=== PATIENT | female | born 1945 | race American Indian/Alaskan Native ===

== ENCOUNTER 2020-10-16 17:33 | Inpatient (IN) | payer MEDICARE ==
--- NOTE | 2020-10-16 18:15 | XRay Report ---
XR chest routine 2V INDICATION / CLINICAL INFORMATION: low O2 sats. COMPARISON: None FINDINGS: SUPPORT DEVICES: None. HEART /PULMONARY VASCULATURE: The cardiac silhouette is enlarged. There is no significant pulmonary v asculature congestion. LUNGS / PLEURA: Trace left pleural effusion. Very mild bibasilar opacities. Linear scarring or volume loss in the left midlung. No pneumothorax. ADDITIONAL FINDINGS: No significant additional findings. IMPRESSION: Trace left pleural effusion. Very mild bibasilar pulmonary opacities may reflect atelectasis or devel oping infiltrate. Signer Name: Danny Bazzi MD Signed: 10/16/2020 6:11 PM Workstation Name: [id number]
[2020-10-16 18:44] LABS: Alanine Aminotransferase 50 units/L (7-56); Albumin 3.6 g/dL (3.9-5); Blood Urea Nitrogen 13 mg/dL (7-17); Calcium 9.1 mg/dL (8.4-10.2); Hemolysis Index 13
[2020-10-16 18:54] LABS: BUN/Creatinine Ratio 19
[2020-10-16 19:02] LABS: Hematocrit 49.1 % (30.3-42.9); Hemoglobin 15.6 gm/dl (10.1-14.3); Mean Corpuscular HGB Conc 32 % (30-34); Mean Corpuscular Volume 87 fl (79-97); Platelet Count 354 K/mm3 (140-440); Red Blood Count 5.63 M/mm3 (3.65-5.03); Red Cell Distribution Width 15.4 % (13.2-15.2)
--- NOTE | 2020-10-17 00:48 | Emergency Department Report ---
ED Shortness of Breath HPI - General Chief Complaint: Dyspnea/Respdistress Stated Complaint: OXYGEN LOW Time Seen by Provider: 10/17/20 00:40 Source: patient, family Mode of arrival: Ambulatory Limitations: No Limitations - History of Present Illness Initial Comments: 75-year-old female, history of hypertension, presents to ED with low O2 saturation from PCPs office. Patient states this was her first appointment with this new PCP. At PCPs office O2 sats were in the 70s on room air. Patient reports she has been having worsening shortness of breath over the last month. At today's appointment, she states physician was concerned that patient may have COPD or a PE, and advised patient to come to the ER. Patient denies any fever, cough, headache, vomiting, diarrhea, leg pain or swelling, loss of smell or taste. Patient reports chronic tobacco use. She denies having received a COVID-19 vaccine. Patient denies any known contact with anyone who has tested positive for COVID-19. MD Complaint: shortness of breath -: month(s) (1) Severity: moderate Quality: other (painless) Consistency: constant Improves With: nothing Worsens With: exertion Associated Symptoms: denies other symptoms Treatments Prior to Arrival: none - Related Data Home Oxygen Therapy: No Allergies Allergy/AdvReac Type Severity Reaction Status Date / Time No Known Allergies Allergy Verified 10/17/20 05:00 ED Review of Systems ROS: Stated complaint: OXYGEN LOW Other details as noted in HPI Comment: All other systems reviewed and negative Constitutional: denies: fever ENT: other (Denies loss of smell or taste) Respiratory: shortness of breath. denies: cough Cardiovascular: denies: chest pain Gastrointestinal: denies: nausea, vomiting, diarrhea Musculoskeletal: other (Denies leg pain or swelling) ED Past Medical Hx - Past Medical History Hx Hypertension: Yes Hx Asthma: Yes ED Physical Exam - General Limitations: No Limitations General appearance: alert, in no apparent distress - Head Head exam: Present: atraumatic, normocephalic - Eye Eye exam: Present: normal appearance, EOMI - ENT ENT exam: Present: mucous membranes moist - Neck Neck exam: Present: normal inspection - Respiratory Respiratory exam: Present: normal lung sounds bilaterally. Absent: respiratory distress - Cardiovascular Cardiovascular Exam: Present: regular rate, normal rhythm - GI/Abdominal GI/Abdominal exam: Present: soft. Absent: distended, tenderness - Extremities Exam Extremities exam: Present: normal inspection. Absent: pedal edema, calf tenderness - Neurological Exam Neurological exam: Present: alert, oriented X3 - Psychiatric Psychiatric exam: Present: normal affect, normal mood - Skin Skin exam: Present: warm, dry, intact, normal color ED Course Vital Signs 10/16/20 10/16/20 10/16/20 17:43 17:44 22:24 Temperature 98.3 F Pulse Rate 79 Respiratory 20 20 16 Rate Blood Pressure Blood Pressure 155/93 [Right] O2 Sat by Pulse 72 L 100 97 Oximetry 10/17/20 10/17/20 10/17/20 00:46 00:53 01:01 Temperature Pulse Rate 83 83 Respiratory 21 16 Rate Blood Pressure 115/78 Blood Pressure [Right] O2 Sat by Pulse 98 100 98 Oximetry 10/17/20 10/17/20 10/17/20 01:15 01:31 01:45 Temperature Pulse Rate 82 83 94 H Respiratory 15 12 13 Rate Blood Pressure 115/78 115/78 115/78 Blood Pressure [Right] O2 Sat by Pulse 97 95 93 Oximetry 10/17/20 10/17/20 10/17/20 02:01 02:15 02:30 Temperature Pulse Rate 82 Respiratory 30 H Rate Blood Pressure 123/80 123/80 123/80 Blood Pressure [Right] O2 Sat by Pulse 89 86 94 Oximetry 10/17/20 10/17/20 10/17/20 02:45 03:01 03:25 Temperature Pulse Rate 80 76 Respiratory 14 13 Rate Blood Pressure 123/80 110/73 110/73 Blood Pressure [Right] O2 Sat by Pulse 100 100 100 Oximetry 10/17/20 10/17/20 10/17/20 03:31 03:45 04:01 Temperature Pulse Rate 83 Respiratory 16 Rate Blood Pressure 110/73 110/73 120/74 Blood Pressure [Right] O2 Sat by Pulse 99 95 98 Oximetry 10/17/20 10/17/20 10/17/20 04:15 04:31 04:45 Temperature Pulse Rate 86 82 77 Respiratory 27 H 29 H 15 Rate Blood Pressure 110/73 110/73 110/73 Blood Pressure [Right] O2 Sat by Pulse 96 96 94 Oximetry 10/17/20 10/17/20 10/17/20 05:01 05:15 05:31 Temperature Pulse Rate 86 Respiratory 9 L Rate Blood Pressure 119/74 120/74 120/74 Blood Pressure [Right] O2 Sat by Pulse 68 L 91 92 Oximetry 10/17/20 10/17/20 10/17/20 05:45 06:01 07:15 Temperature Pulse Rate Respiratory Rate Blood Pressure 120/74 103/65 106/74 Blood Pressure [Right] O2 Sat by Pulse 88 95 93 Oximetry 10/17/20 10/17/20 10/17/20 08:00 08:01 09:01 Temperature Pulse Rate 85 Respiratory 18 Rate Blood Pressure 102/68 102/68 Blood Pressure [Right] O2 Sat by Pulse 94 91 Oximetry 10/17/20 10/17/20 10/17/20 10:01 11:01 11:29 Temperature Pulse Rate 80 85 Respiratory 12 19 Rate Blood Pressure 102/68 102/68 Blood Pressure [Right] O2 Sat by Pulse 92 Oximetry 10/17/20 10/17/20 10/17/20 12:00 14:00 16:23 Temperature Pulse Rate 90 88 85 Respiratory Rate Blood Pressure Blood Pressure 112/69 106/57 106/59 [Right] O2 Sat by Pulse 95 95 95 Oximetry 10/17/20 18:00 Temperature Pulse Rate 86 Respiratory Rate Blood Pressure Blood Pressure 111/57 [Right] O2 Sat by Pulse 95 Oximetry ED Medical Decision Making - Lab Data Result diagrams: 10/16/20 17:55 10/17/20 03:32 - Radiology Data Radiology results: report reviewed, image reviewed - Medical Decision Making 75-year-old female presents to ED with shortness of breath and hypoxia. O2 sats 72% on room air at triage. Patient denies any Covid-like symptoms. Patient is in no respiratory distress at this time. Chest x-ray shows trace left pleural effusion and very mild bibasilar opacities that could represent early pneumonia versus atelectasis. Patient is currently on 5 L nasal cannula with O2 sat of 100%. Blood cultures ordered, patient given Rocephin, azithromycin, Decadron for possible Covid. Labs are unremarkable except for elevated D-dimer of 614. CTA chest has been ordered. I spoke with Dr. Stoll who will be admitting the patient. He is aware that CTA chest is pending. Dr. Melo has agreed to also follow-up on patient's CTA chest. - Differential Diagnosis COPD, PE, COVID Critical Care Time: Yes Critical care time in (mins) excluding proc time.: 35 Critical care attestation.: If time is entered above; I have spent that time in minutes in the direct care of this critically ill patient, excluding procedure time. Critical Care Time: 35 min ED Disposition Clinical Impression: Acute respiratory failure with hypoxia, Pneumonia, Suspected 2019 novel coronavirus infection Disposition: ADMITTED INPATIENT Is pt being admited?: Yes Condition: Stable
[2020-10-17 02:11] LABS: INR 1.13 (0.87-1.13)
[2020-10-17] MEDS ORDERED: AZITHROMYCIN 250 MG TAB PO ONE (02:50)
[2020-10-17] MEDS ORDERED: cefTRIAXone/NS 1 GM/50 ML 1 GM/50 ML BAG IV ONE (02:50)
[2020-10-17] MEDS ORDERED: DEXAMETHASONE 4 MG TAB PO ONE (02:50)
--- NOTE | 2020-10-17 03:45 | Cat Scan Report ---
CTA CHEST WITH IV CONTRAST INDICATION: hypoxia, elevated d-dimer. TECHNIQUE: Axial CT images were obtained through the chest after injection of 100 cc IV contrast. 3 plane MIP re constructions were produced. All CT scans at this location are performed using CT dose reduction for ALARA by means of automated exposure control. COMPARISON: None available. FINDINGS: PULMONARY ARTERIES: No pulmonary emboli. THORACIC AORTA: No acute abnormality. HEART: Moderate cardiomegaly CORONARY ARTERIES: No significant calcification. PLEURA: No pleural effusion. No pneumothorax. LYMPH NODES: No significant adenopathy. LUNGS: Moderate pulmonary emphysema and mild increased interstitial markings calcified right upper lo be granuloma image 29 ADDITIONAL FINDINGS: None. UPPER ABDOMEN: No acute findings. SKELETAL STRUCTURES: No significant osseous abnormality. IMPRESSION: 1. No CT evidence for pulmonary embolism. 2. Cardiomegaly with increased interstitial markings suggestive for mild interstitial edema 3. Moderate emphysema Signer Name: Dilip Valerio MD Signed: 10/17/2020 3:41 AM Workstation Name: [id number]
[2020-10-17 04:26] LABS: C-Reactive Protein 0.7 mg/dL (0.00-1.30)
[2020-10-17] MEDS ORDERED: ONDANSETRON 4 MG/2 ML INJ IV PRN (04:48)
[2020-10-17] MEDS ORDERED: ALBUTEROL 2.5 MG/3 ML NEBU IH PRN (04:48)
[2020-10-17] MEDS ORDERED: ACETAMINOPHEN 325 MG TAB PO PRN (04:48)
[2020-10-17] MEDS ORDERED: HYDROmorphone 1 MG/1 ML INJ IV PRN (04:48)
[2020-10-17] MEDS ORDERED: oxyCODONE /ACETAMINOPHEN 5-325MG TAB PO PRN (04:48)
[2020-10-17] MEDS ORDERED: hydrALAZINE 20 MG/1 ML INJ IV PRN (04:51)
--- NOTE | 2020-10-17 04:56 | History and Physical Report ---
History of Present Illness Date of examination: 10/17/20 Date of admission: 10/17/2020 Chief complaint: Shortness of breath Hypoxia History of present illness: 75-year-old female, history of hypertension was brought to the emergency room from PCPs office because of shortness of breath and hypoxia. Patient was her first appointment with this new PCP. At PCPs office O2 sats were in the 70s on room air. Patient has been having worsening shortness of breath over the last month. physician was concerned that patient may have COPD or a PE, and advised patient to come to the ER. Patient denies any fever, cough, headache, vomiting, diarrhea, leg pain or swelling, loss of smell or taste. Patient reports chronic tobacco use. She denies having received a COVID-19 vaccine. Patient denies any known contact with anyone who has tested positive for COVID-19. CT scan of the chest showed no CT evidence for pulmonary embolism. Cardiomegaly with increased interstitial markings suggestive for mild interstitial edema. Moderate emphysema Past History Past Medical History: hypertension, other (Asthma) Medications and Allergies Allergies Allergy/AdvReac Type Severity Reaction Status Date / Time No Known Allergies Allergy Unverified 10/16/20 17:39 Active Meds: Active Medications Acetaminophen (Acetaminophen 325 Mg Tab) 650 mg PO Q4H PRN PRN Reason: Pain MILD(1-3)/Fever >100.5/PEREZ Albuterol (Albuterol 2.5 Mg/3 Ml Nebu) 2.5 mg IH Q4HRT PRN PRN Reason: Shortness Of Breath Albuterol/Ipratropium (Ipratropium/Albuterol Sulfate 3 Ml Ampul.Neb) 1 ampul IH Q6HRT HOWARD Ondansetron HCl (Ondansetron 4 Mg/2 Ml Inj) 4 mg IV Q8H PRN PRN Reason: Nausea And Vomiting Sodium Chloride (Sodium Chloride 0.9% 10 Ml Flush Syringe) 10 ml IV BID HOWARD Sodium Chloride (Sodium Chloride 0.9% 10 Ml Flush Syringe) 10 ml IV PRN PRN PRN Reason: LINE FLUSH Review of Systems All systems: negative Cardiovascular: shortness of breath, dyspnea on exertion Respiratory: shortness of breath, dyspnea on exertion Exam - Constitutional Vitals: Temp Pulse Resp BP Pulse Ox 98.3 F 94 H 13 115/78 93 10/16/20 17:43 10/17/20 01:45 10/17/20 01:45 10/17/20 01:45 10/17/20 01:45 General appearance: Present: no acute distress, well-nourished - EENT Eyes: Present: PERRL ENT: hearing intact, clear oral mucosa - Neck Neck: Present: supple, normal ROM - Respiratory Respiratory effort: normal Respiratory: bilateral: diminished - Cardiovascular Heart Sounds: Present: S1 & S2. Absent: rub, click - Extremities Extremities: pulses symmetrical, No edema Peripheral Pulses: within normal limits - Abdominal General gastrointestinal: Present: soft, non-tender, non-distended, normal bowel sounds Female genitourinary: Present: normal - Integumentary Integumentary: Present: clear, warm, dry - Musculoskeletal Musculoskeletal: gait normal, strength equal bilaterally - Psychiatric Psychiatric: appropriate mood/affect, intact judgment & insight - Neurologic Neurologic: CNII-XII intact, moves all extremities HEART Score - HEART Score Troponin: Troponin T < 0.010 ng/mL (0.00-0.029) 10/16/20 21:10 Results - Labs CBC & Chem 7: 10/16/20 17:55 10/17/20 03:32 Labs: Laboratory Last Values WBC 4.2 K/mm3 (4.5-11.0) L 10/16/20 17:55 RBC 5.63 M/mm3 (3.65-5.03) H 10/16/20 17:55 Hgb 15.6 gm/dl (10.1-14.3) H 10/16/20 17:55 Hct 49.1 % (30.3-42.9) H 10/16/20 17:55 MCV 87 fl (79-97) 10/16/20 17:55 MCH 28 pg (28-32) 10/16/20 17:55 MCHC 32 % (30-34) 10/16/20 17:55 RDW 15.4 % (13.2-15.2) H 10/16/20 17:55 Plt Count 354 K/mm3 (140-440) 10/16/20 17:55 Lymph % (Auto) Patient Financial Services Specialist 10/16/20 17:55 [place] % (Auto) Patient Financial Services Specialist 10/16/20 17:55 Eos % (Auto) Patient Financial Services Specialist 10/16/20 17:55 [place] % (Auto) Patient Financial Services Specialist 10/16/20 17:55 Lymph # (Auto) Patient Financial Services Specialist 10/16/20 17:55 [place] # (Auto) Patient Financial Services Specialist 10/16/20 17:55 Eos # (Auto) Patient Financial Services Specialist 10/16/20 17:55 [place] # (Auto) Patient Financial Services Specialist 10/16/20 17:55 Seg Neutrophils % Patient Financial Services Specialist 10/16/20 17:55 Seg Neutrophils # Patient Financial Services Specialist 10/16/20 17:55 PT 15.1 Sec. (12.2-14.9) H 10/17/20 00:50 INR 1.13 (0.87-1.13) 10/17/20 00:50 APTT 32.0 Sec. (24.2-36.6) 10/17/20 00:50 D-Dimer 539.50 ng/mlDDU (0-234) H 10/17/20 03:32 Sodium 138 mmol/L (137-145) 10/16/20 17:55 Potassium 4.8 mmol/L (3.6-5.0) 10/16/20 17:55 Chloride 99.7 mmol/L (98-107) 10/16/20 17:55 Carbon Dioxide 30 mmol/L (22-30) 10/16/20 17:55 Anion Gap 13 mmol/L 10/16/20 17:55 BUN 13 mg/dL (7-17) 10/16/20 17:55 Creatinine 0.7 mg/dL (0.6-1.2) 10/16/20 17:55 Estimated GFR > 60 ml/min 10/16/20 17:55 BUN/Creatinine Ratio 19 % 10/16/20 17:55 Glucose 72 mg/dL (65-100) 10/17/20 03:32 Calcium 9.1 mg/dL (8.4-10.2) 10/16/20 17:55 Ferritin 15.6 ng/mL (10.0-200.0) 10/17/20 03:32 Total Bilirubin 0.30 mg/dL (0.1-1.2) 10/16/20 17:55 AST 41 units/L (5-40) H 10/16/20 17:55 ALT 50 units/L (7-56) 10/16/20 17:55 Alkaline Phosphatase 92 units/L (35-129) 10/16/20 17:55 Lactate Dehydrogenase 153 units/L (91-180) 10/17/20 03:32 Troponin T < 0.010 ng/mL (0.00-0.029) 10/16/20 21:10 C-Reactive Protein 0.70 mg/dL (0.00-1.30) 10/17/20 03:32 Total Protein 5.7 g/dL (6.3-8.2) L 10/16/20 17:55 Albumin 3.6 g/dL (3.9-5) L 10/16/20 17:55 Albumin/Globulin Ratio 1.7 % 10/16/20 17:55 - Imaging and Cardiology Chest x-ray: report reviewed CT scan - chest: report reviewed Assessment and Plan VTE prophylaxis?: Chemical Plan of care discussed with patient/family: Yes - Patient Problems (1) Acute respiratory failure with hypoxia Current Visit: Yes Status: Acute Plan to address problem: Admit the patient to the medical floor. Oxygen via nasal cannula 3 L/min. DuoNeb by nebulizer every 4 hours. Albuterol via nebulizer every 4 hours as needed. Rocephin 2 g IV daily and Zithromax 500 mg IV daily. Dexamethasone 6 mg IV daily. We do the blood culture and sputum culture. Will consult pulmonary for evaluation (2) Pneumonia Current Visit: Yes Status: Acute Plan to address problem: Oxygen via nasal cannula 3 L/min. DuoNeb by nebulizer every 4 hours. Albuterol via nebulizer every 4 hours as needed. Rocephin 2 g IV daily and Zithromax 500 mg IV daily. we do the blood culture and sputum culture. Will consult pulmonary for evaluation (3) Suspected 2019 novel coronavirus infection Current Visit: Yes Status: Acute Plan to address problem: Oxygen via nasal cannula 3 L/min. DuoNeb by nebulizer every 4 hours. Albuterol via nebulizer every 4 hours as needed. Rocephin 2 g IV daily and Zithromax 500 mg IV daily. Dexamethasone 6 mg IV daily. We do the blood culture and sputum culture. Will consult pulmonary for evaluation. Follow Covid PCR and Covid inflammatory marker (4) Hypertension Current Visit: Yes Status: Acute Plan to address problem: Hydralazine 10 mg IV every 6 hours as needed. We will monitor the blood pressure closely (5) Asthma Current Visit: Yes Status: Acute Plan to address problem: Oxygen via nasal cannula 3 L/min. DuoNeb by nebulizer every 4 hours. Albuterol via nebulizer every 4 hours as needed. Rocephin 2 g IV daily and Zithromax 500 mg IV daily. Dexamethasone 6 mg IV daily. (6) DVT prophylaxis Current Visit: Yes Status: Acute Plan to address problem: Heparin 5000 units subcu every 8 hours for DVT prophylaxis. Pepcid 20 mg p.o. twice daily for GI prophylaxis. Patient is a full code
[2020-10-17] MEDS: AZITHROMYCIN/NS 500 MG/250 ML 500 MG/250 ML BAG IV SCH (06:10)
[2020-10-17] MEDS: HEPARIN 5,000 UNIT/1 ML VIAL SUB-Q SCH ×3 (06:10→22:46)
[2020-10-17] MEDS: cefTRIAXone/NS 2 GM/100 ML 2 GM/100 ML BAG IV SCH (06:10)
[2020-10-17] MEDS ORDERED: dexAMETHasone 4 MG/ML VIAL IV SCH (10:00)
[2020-10-17] MEDS: FAMOTIDINE 20 MG TAB PO SCH ×2 (10:44→22:41)
--- NOTE | 2020-10-17 12:50 | Progress Note ---
Assessment and Plan Assessment and plan: (1) Acute respiratory failure with hypoxia Current Visit: Yes Status: Acute Plan to address problem: Admit the patient to the medical floor. Currently on supplemental oxygen 2 L/min DuoNeb by nebulizer every 4 hours. Rocephin 2 g IV daily and Zithromax 500 mg IV daily. Discontinue dexamethasone 6 mg IV daily. blood culture and sputum culture ordered Pulmonary consulted on admission (2) Pneumonia Current Visit: Yes Status: Acute Plan to address problem: CTA chest: Negative for PE, interstitial infiltrates noted bilaterally. No facial read per radiology Management as above (3) Suspected 2019 novel coronavirus infection Current Visit: Yes Status: Acute Plan to address problem: Covid PCR negative Educated on obtaining Covid 19 vaccine (4) Hypertension Current Visit: Yes Status: Acute Plan to address problem: Hydralazine 10 mg IV every 6 hours as needed. Takes amlodipine as home medication however states that she was told to discontinue by primary care doctor (5) Asthma Current Visit: Yes Status: Acute Plan to address problem: Nebulizers as above, does not appear to be in acute exacerbation (6) DVT prophylaxis Current Visit: Yes Status: Acute Plan to address problem: Heparin 5000 units subcu every 8 hours for DVT prophylaxis. Pepcid 20 mg p.o. twice daily for GI prophylaxis. Patient is a full code Disposition: Admitted for acute hypoxic respiratory failure secondary to pneumonia. Currently on IV antibiotics. Pulmonary consulted on admission. Patient improved on subsequent encounter. Will titrate oxygen off as sats tolerate. Physical therapy consulted. Anticipate discharge tomorrow History Interval history: Resting comfortably sleeping on encounter. Per RN off oxygen patient saturates to 90% however on 2 L she comes up to 95%. Patient states that she feels very weak. She denied having taken the COVID-19 vaccine. She states that she was sent by her primary care doctor due to concerns about her oxygenation. Hospitalist Physical - Physical exam Narrative exam: Physical Exam: Constitutional: Drowsy, cooperative. No acute distress. Frail, elderly woman Head, Ears, Nose: Normocephalic, atraumatic. External ears, nose normal Eyes: Conjunctivae/corneas clear. No icterus. No ptosis. Neck: Supple, no meningeal signs Oral: dentition fair, no thrush Cardiovascular: S1, S2 normal. Respiratory: Good air entry, clear to auscultation bilaterally GI: Soft, non-tender; bowel sounds normal. No peritoneal signs. Musculoskeletal: No pedal edema, no cyanosis. Skin: No rash or abscess Hem/Lymphatic: No palpable cervical or supraclavicular nodes. No lymphangitis Psych: Mood ok. Affect normal Neurological: Awake, alert, oriented. No gross abnormality - Constitutional Vitals: Temp Pulse Resp BP Pulse Ox 98.3 F 85 18 102/68 92 10/16/20 17:43 10/17/20 09:01 10/17/20 09:01 10/17/20 09:01 10/17/20 11:29 General appearance: Present: no acute distress, well-nourished HEART Score - HEART Score Troponin: Troponin T < 0.010 ng/mL (0.00-0.029) 10/16/20 21:10 Results - Labs CBC & Chem 7: 10/16/20 17:55 10/17/20 03:32 Labs: Laboratory Last Values WBC 4.2 K/mm3 (4.5-11.0) L 10/16/20 17:55 RBC 5.63 M/mm3 (3.65-5.03) H 10/16/20 17:55 Hgb 15.6 gm/dl (10.1-14.3) H 10/16/20 17:55 Hct 49.1 % (30.3-42.9) H 10/16/20 17:55 MCV 87 fl (79-97) 10/16/20 17:55 MCH 28 pg (28-32) 10/16/20 17:55 MCHC 32 % (30-34) 10/16/20 17:55 RDW 15.4 % (13.2-15.2) H 10/16/20 17:55 Plt Count 354 K/mm3 (140-440) 10/16/20 17:55 Lymph % (Auto) Outdoor Guide 10/16/20 17:55 [place] % (Auto) Outdoor Guide 10/16/20 17:55 Eos % (Auto) Outdoor Guide 10/16/20 17:55 Baso % (Auto) Outdoor Guide 10/16/20 17:55 Lymph # (Auto) Outdoor Guide 10/16/20 17:55 [place] # (Auto) Outdoor Guide 10/16/20 17:55 Eos # (Auto) Outdoor Guide 10/16/20 17:55 Baso # (Auto) Outdoor Guide 10/16/20 17:55 Seg Neutrophils % Outdoor Guide 10/16/20 17:55 Seg Neutrophils # Outdoor Guide 10/16/20 17:55 PT 15.1 Sec. (12.2-14.9) H 10/17/20 00:50 INR 1.13 (0.87-1.13) 10/17/20 00:50 APTT 32.0 Sec. (24.2-36.6) 10/17/20 00:50 D-Dimer 539.50 ng/mlDDU (0-234) H 10/17/20 03:32 Sodium 138 mmol/L (137-145) 10/16/20 17:55 Potassium 4.8 mmol/L (3.6-5.0) 10/16/20 17:55 Chloride 99.7 mmol/L (98-107) 10/16/20 17:55 Carbon Dioxide 30 mmol/L (22-30) 10/16/20 17:55 Anion Gap 13 mmol/L 10/16/20 17:55 BUN 13 mg/dL (7-17) 10/16/20 17:55 Creatinine 0.7 mg/dL (0.6-1.2) 10/16/20 17:55 Estimated GFR > 60 ml/min 10/16/20 17:55 BUN/Creatinine Ratio 19 % 10/16/20 17:55 Glucose 72 mg/dL (65-100) 10/17/20 03:32 Calcium 9.1 mg/dL (8.4-10.2) 10/16/20 17:55 Ferritin 15.6 ng/mL (10.0-200.0) 10/17/20 03:32 Total Bilirubin 0.30 mg/dL (0.1-1.2) 10/16/20 17:55 AST 41 units/L (5-40) H 10/16/20 17:55 ALT 50 units/L (7-56) 10/16/20 17:55 Alkaline Phosphatase 92 units/L (35-129) 10/16/20 17:55 Lactate Dehydrogenase 153 units/L (91-180) 10/17/20 03:32 Troponin T < 0.010 ng/mL (0.00-0.029) 10/16/20 21:10 C-Reactive Protein 0.70 mg/dL (0.00-1.30) 10/17/20 03:32 Total Protein 5.7 g/dL (6.3-8.2) L 10/16/20 17:55 Albumin 3.6 g/dL (3.9-5) L 10/16/20 17:55 Albumin/Globulin Ratio 1.7 % 10/16/20 17:55 Procalcitonin 0.44 ng/mL (<0.15) 10/17/20 03:32 Microbiology: Microbiology 10/17/20 03:32 Peripheral/Venous Blood Culture - Preliminary Culture in Progress 10/17/20 03:32 Peripheral/Venous Blood Culture - Preliminary Culture in Progress Active Medications - Current Medications Current Medications: Generic Name Dose Route Start Last Admin Trade Name Freq PRN Reason Stop Dose Admin Acetaminophen 650 mg 10/17/20 04:48 Acetaminophen 325 Mg Tab PO Q4H PRN Pain MILD(1-3)/Fever >100.5/PEREZ Albuterol 2.5 mg 10/17/20 04:48 Albuterol 2.5 Mg/3 Ml Nebu IH Q4HRT PRN Shortness Of Breath Albuterol/Ipratropium 1 ampul 10/17/20 08:00 Ipratropium/Albuterol Sulfate 3 Ml Ampul.Neb IH Q6HRT HOWARD Dexamethasone 6 mg 10/17/20 10:00 10/17/20 10:44 Dexamethasone 4 Mg/Ml Vial IV 6 mg DAILY HOWARD Administration Famotidine 20 mg 10/17/20 10:00 10/17/20 10:44 Famotidine 20 Mg Tab PO 20 mg BID HOWARD Administration Heparin Sodium (Porcine) 5,000 unit 10/17/20 06:00 10/17/20 06:10 Heparin 5,000 Unit/1 Ml Vial SUB-Q 5,000 unit Q8HR HOWARD Administration Hydralazine HCl 10 mg 10/17/20 04:51 Hydralazine 20 Mg/1 Ml Inj IV Q6H PRN Blood Pressure Hydromorphone HCl 0.5 mg 10/17/20 04:48 Hydromorphone 1 Mg/1 Ml Inj IV Q3H PRN Pain , Severe (7-10) Ceftriaxone Sodium 2 gm in 100 mls @ 200 mls/hr 10/17/20 05:00 10/17/20 06:10 Rocephin/Ns 2 Gm/100 Ml IV 200 mls/hr Q24H HOWARD Administration Protocol Azithromycin 500 mg in 250 mls @ 250 mls/hr 10/17/20 05:00 10/17/20 06:10 Zithromax/Ns IV 250 mls/hr Q24H HOWARD Administration Protocol Ondansetron HCl 4 mg 10/17/20 04:48 Ondansetron 4 Mg/2 Ml Inj IV Q8H PRN Nausea And Vomiting Oxycodone/Acetaminophen 1 tab 10/17/20 04:48 Oxycodone /Acetaminophen 5-325mg Tab PO Q6H PRN Pain, Moderate (4-6) Sodium Chloride 10 ml 10/17/20 10:00 10/17/20 10:45 Sodium Chloride 0.9% 10 Ml Flush Syringe IV 10 ml BID HOWARD Administration Sodium Chloride 10 ml 10/17/20 04:48 Sodium Chloride 0.9% 10 Ml Flush Syringe IV PRN PRN LINE FLUSH
[2020-10-17] MEDS: NICOTINE 14 MG/24 HR PATCH TD SCH (23:40)
[2020-10-18] MEDS: ESCITALOPRAM 10 MG TAB PO SCH ×2 (01:43→10:15)
[2020-10-18] MEDS: IPRATROPIUM/ALBUTEROL SULFATE 3 ML AMPUL.NEB IH SCH ×6 (01:48→23:26)
[2020-10-18 05:55] LABS: Hematocrit 45.3 % (30.3-42.9); Hemoglobin 14.4 gm/dl (10.1-14.3); Mean Corpuscular HGB Conc 32 % (30-34); Mean Corpuscular Volume 88 fl (79-97); Platelet Count 309 K/mm3 (140-440); Red Blood Count 5.15 M/mm3 (3.65-5.03); Red Cell Distribution Width 15.4 % (13.2-15.2)
[2020-10-18 06:13] LABS: Blood Urea Nitrogen 12 mg/dL (7-17); Calcium 9.1 mg/dL (8.4-10.2); Hemolysis Index 2
[2020-10-18 06:15] LABS: BUN/Creatinine Ratio 20
[2020-10-18] MEDS: HEPARIN 5,000 UNIT/1 ML VIAL SUB-Q SCH ×3 (06:41→22:38)
[2020-10-18] MEDS: cefTRIAXone/NS 2 GM/100 ML 2 GM/100 ML BAG IV SCH (06:41)
[2020-10-18 06:44] LABS: Total Cells Counted 100
[2020-10-18 06:45] LABS: Platelet Estimate Consistent w Auto; RBC Morphology Normal
[2020-10-18] MEDS: AZITHROMYCIN/NS 500 MG/250 ML 500 MG/250 ML BAG IV SCH (07:13)
[2020-10-18] MEDS: FAMOTIDINE 20 MG TAB PO SCH ×2 (10:15→23:10)
[2020-10-18] MEDS: NICOTINE 14 MG/24 HR PATCH TD SCH (10:15)
[2020-10-18] MEDS ORDERED: SODIUM CHLORIDE 0.9% 1000 ML 1,000 ML IV SCH (10:45)
--- NOTE | 2020-10-18 10:45 | Progress Note ---
Assessment and Plan Assessment and plan: (1) Acute respiratory failure with hypoxia Admit the patient to the medical floor, etiology likely interstitial edema. doubt pneumonia Currently on supplemental oxygen 3 L/min DuoNeb by nebulizer every 4 hours. Budesonide every 12 hours COVID PCR negative Procal low, d/c Rocephin 2 g IV daily and Zithromax 500 mg IV daily. Discontinue dexamethasone 6 mg IV daily. blood culture and sputum culture ordered ECHO ordered Lasix 20 mg IV x1 Pulmonary consulted Pateint desaturated to 82% walking from bed to restroom off of oxygen. CM consult for home oxygen. (2) Interstitial Edema Weak on encounter, afebrile, hypoxic Admission chest x-ray CTA chest: Negative for PE, interstitial infiltrates noted bilaterally. Official read per radiology BNP ordered ECHO ordered Management as above (3) Hypertension Hydralazine 10 mg IV every 6 hours as needed. Takes amlodipine as home medication however states that she was told to d iscontinue by primary care doctor (4) Emphysema Emphysematous findings noted on CTA chest Nebulizers as above, does not appear to be in acute exacerbation (5) Suspected 2019 novel coronavirus infection Covid PCR negative Educated on obtaining Covid 19 vaccine (6) DVT prophylaxis Heparin 5000 units subcu every 8 hours for DVT prophylaxis. Pepcid 20 mg p.o. twice daily for GI prophylaxis. Patient is a full code Hospital course to date: 10/17: Admitted for acute hypoxic respiratory failure secondary to pneumonia. Currently on IV antibiotics. Pulmonary consulted on admission. Patient imp roved on subsequent encounter. Will titrate oxygen off as sats tolerate. Physical therapy consulted. Anticipate discharge tomorrow 10/18/2020: Clinically worsened today. Patient hypoxic upon ambulation. Patient may be fluid overloaded, will try one-time dose of Lasix. Echo ordered. Appears more weak. Added budesonide, incentive spirometry. Continuing antibiotics. Unfortunately patient cannot be discharged home today will await pulmonary recommendations.CM order placed for oxygen. History Interval history: Per RN, desaturated to low 80s when ambulating to the restroom. Appears to be significantly more weak this a.m. Hospitalist Physical - Physical exam Narrative exam: Physical Exam: Constitutional: Drowsy, cooperative. No acute distress. Frail, elderly woman Head, Ears, Nose: Normocephalic, atraumatic. External ears, nose normal Eyes: Conjunctivae/corneas clear. No icterus. No ptosis. Neck: Supple, no meningeal signs Oral: dentition fair, no thrush Cardiovascular: S1, S2 normal. Respiratory: Good air entry, bilateral wheezes. GI: Soft, non-tender; bowel sounds normal. No peritoneal signs. Musculoskeletal: No pedal edema, no cyanosis. Skin: No rash or abscess Hem/Lymphatic: No palpable cervical or supraclavicular nodes. No lymphangitis Psych: Mood ok. Affect normal Neurological: Awake, alert, oriented. No gross abnormality - Constitutional Vitals: Temp Pulse Resp BP Pulse Ox 98.3 F 84 15 111/57 97 10/16/20 17:43 10/18/20 01:54 10/18/20 01:54 10/17/20 18:00 10/17/20 22:00 General appearance: Present: no acute distress, well-nourished HEART Score - HEART Score Troponin: Troponin T < 0.010 ng/mL (0.00-0.029) 10/16/20 21:10 Results - Labs CBC & Chem 7: 10/18/20 05:11 10/18/20 05:11 Labs: Laboratory Last Values WBC 4.7 K/mm3 (4.5-11.0) 10/18/20 05:11 RBC 5.15 M/mm3 (3.65-5.03) H 10/18/20 05:11 Hgb 14.4 gm/dl (10.1-14.3) H 10/18/20 05:11 Hct 45.3 % (30.3-42.9) H 10/18/20 05:11 MCV 88 fl (79-97) 10/18/20 05:11 MCH 28 pg (28-32) 10/18/20 05:11 MCHC 32 % (30-34) 10/18/20 05:11 RDW 15.4 % (13.2-15.2) H 10/18/20 05:11 Plt Count 309 K/mm3 (140-440) 10/18/20 05:11 Lymph % (Auto) Ditcher Operator 10/16/20 17:55 [place] % (Auto) Ditcher Operator 10/18/20 05:11 Eos % (Auto) Ditcher Operator 10/16/20 17:55 Baso % (Auto) Ditcher Operator 10/16/20 17:55 Lymph # (Auto) Ditcher Operator 10/16/20 17:55 [place] # (Auto) Ditcher Operator 10/16/20 17:55 Eos # (Auto) Ditcher Operator 10/16/20 17:55 Baso # (Auto) Ditcher Operator 10/16/20 17:55 Add Manual Diff Complete 10/18/20 05:11 Total Counted 100 10/18/20 05:11 Seg Neutrophils % Ditcher Operator 10/16/20 17:55 Seg Neuts % (Manual) 60.0 % (40.0-70.0) 10/18/20 05:11 Lymphocytes % (Manual) 27.0 % (13.4-35.0) 10/18/20 05:11 Monocytes % (Manual) 13.0 % (0.0-7.3) H 10/18/20 05:11 Nucleated RBC % Not Reportable 10/18/20 05:11 Seg Neutrophils # Ditcher Operator 10/16/20 17:55 Seg Neutrophils # Man 2.8 K/mm3 (1.8-7.7) 10/18/20 05:11 Band Neutrophils # 0.0 K/mm3 10/18/20 05:11 Lymphocytes # (Manual) 1.3 K/mm3 (1.2-5.4) 10/18/20 05:11 Abs React Lymphs (Man) 0.0 K/mm3 10/18/20 05:11 Monocytes # (Manual) 0.6 K/mm3 (0.0-0.8) 10/18/20 05:11 Eosinophils # (Manual) 0.0 K/mm3 (0.0-0.4) 10/18/20 05:11 Basophils # (Manual) 0.0 K/mm3 (0.0-0.1) 10/18/20 05:11 Metamyelocytes # 0.0 K/mm3 10/18/20 05:11 Myelocytes # 0.0 K/mm3 10/18/20 05:11 Promyelocytes # 0.0 K/mm3 10/18/20 05:11 Blast Cells # 0.0 K/mm3 10/18/20 05:11 WBC Morphology Not Reportable 10/18/20 05:11 Hypersegmented Neuts Not Reportable 10/18/20 05:11 Hyposegmented Neuts Not Reportable 10/18/20 05:11 Hypogranular Neuts Not Reportable 10/18/20 05:11 Smudge Cells Not Reportable 10/18/20 05:11 Toxic Granulation Not Reportable 10/18/20 05:11 Toxic Vacuolation Not Reportable 10/18/20 05:11 Dohle Bodies Not Reportable 10/18/20 05:11 Pelger-Huet Anomaly Not Reportable 10/18/20 05:11 Millie Rods Not Reportable 10/18/20 05:11 Platelet Estimate Consistent w auto 10/18/20 05:11 Clumped Platelets Not Reportable 10/18/20 05:11 Plt Clumps, EDTA Not Reportable 10/18/20 05:11 Large Platelets Not Reportable 10/18/20 05:11 Giant Platelets Not Reportable 10/18/20 05:11 Platelet Satelliting Not Reportable 10/18/20 05:11 Plt Morphology Comment Not Reportable 10/18/20 05:11 RBC Morphology Normal 10/18/20 05:11 Dimorphic RBCs Not Reportable 10/18/20 05:11 Polychromasia Not Reportable 10/18/20 05:11 Hypochromasia Not Reportable 10/18/20 05:11 Poikilocytosis Not Reportable 10/18/20 05:11 Anisocytosis Not Reportable 10/18/20 05:11 Microcytosis Not Reportable 10/18/20 05:11 Macrocytosis Not Reportable 10/18/20 05:11 Spherocytes Not Reportable 10/18/20 05:11 Pappenheimer Bodies Not Reportable 10/18/20 05:11 Sickle Cells Not Reportable 10/18/20 05:11 Target Cells Not Reportable 10/18/20 05:11 Tear Drop Cells Not Reportable 10/18/20 05:11 Ovalocytes Not Reportable 10/18/20 05:11 Helmet Cells Not Reportable 10/18/20 05:11 [place] Bodies Not Reportable 10/18/20 05:11 Gary Rings Not Reportable 10/18/20 05:11 Mayra Cells Not Reportable 10/18/20 05:11 Bite Cells Not Reportable 10/18/20 05:11 Crenated Cell Not Reportable 10/18/20 05:11 Elliptocytes Not Reportable 10/18/20 05:11 Acanthocytes (Spur) Not Reportable 10/18/20 05:11 Rouleaux Not Reportable 10/18/20 05:11 Hemoglobin C Crystals Not Reportable 10/18/20 05:11 Schistocytes Not Reportable 10/18/20 05:11 Malaria parasites Not Reportable 10/18/20 05:11 Lenny Bodies Not Reportable 10/18/20 05:11 Hem Pathologist Commnt No 10/18/20 05:11 PT 15.1 Sec. (12.2-14.9) H 10/17/20 00:50 INR 1.13 (0.87-1.13) 10/17/20 00:50 APTT 32.0 Sec. (24.2-36.6) 10/17/20 00:50 D-Dimer 539.50 ng/mlDDU (0-234) H 10/17/20 03:32 Sodium 141 mmol/L (137-145) 10/18/20 05:11 Potassium 5.0 mmol/L (3.6-5.0) 10/18/20 05:11 Chloride 100.9 mmol/L (98-107) 10/18/20 05:11 Carbon Dioxide 34 mmol/L (22-30) H 10/18/20 05:11 Anion Gap 11 mmol/L 10/18/20 05:11 BUN 12 mg/dL (7-17) 10/18/20 05:11 Creatinine 0.6 mg/dL (0.6-1.2) 10/18/20 05:11 Estimated GFR > 60 ml/min 10/18/20 05:11 BUN/Creatinine Ratio 20 % 10/18/20 05:11 Glucose 111 mg/dL (65-100) H 10/18/20 05:11 Calcium 9.1 mg/dL (8.4-10.2) 10/18/20 05:11 Ferritin 15.6 ng/mL (10.0-200.0) 10/17/20 03:32 Total Bilirubin 0.30 mg/dL (0.1-1.2) 10/16/20 17:55 AST 41 units/L (5-40) H 10/16/20 17:55 ALT 50 units/L (7-56) 10/16/20 17:55 Alkaline Phosphatase 92 units/L (35-129) 10/16/20 17:55 Lactate Dehydrogenase 153 units/L (91-180) 10/17/20 03:32 Troponin T < 0.010 ng/mL (0.00-0.029) 10/16/20 21:10 C-Reactive Protein 0.70 mg/dL (0.00-1.30) 10/17/20 03:32 Total Protein 5.7 g/dL (6.3-8.2) L 10/16/20 17:55 Albumin 3.6 g/dL (3.9-5) L 10/16/20 17:55 Albumin/Globulin Ratio 1.7 % 10/16/20 17:55 Procalcitonin 0.44 ng/mL (<0.15) 10/17/20 03:32 Coronavirus (PCR) Negative (Negative) 10/17/20 09:00 Microbiology: Microbiology 10/17/20 03:32 Peripheral/Venous Blood Culture - Preliminary NO GROWTH AFTER 24 HOURS 10/17/20 03:32 Peripheral/Venous Blood Culture - Preliminary NO GROWTH AFTER 24 HOURS Active Medications - Current Medications Current Medications: Generic Name Dose Route Start Last Admin Trade Name Freq PRN Reason Stop Dose Admin Acetaminophen 650 mg 10/17/20 04:48 Acetaminophen 325 Mg Tab PO Q4H PRN Pain MILD(1-3)/Fever >100.5/PEREZ Albuterol 2.5 mg 10/17/20 04:48 Albuterol 2.5 Mg/3 Ml Nebu IH Q4HRT PRN Shortness Of Breath Albuterol/Ipratropium 1 ampul 10/17/20 08:00 10/18/20 07:10 Ipratropium/Albuterol Sulfate 3 Ml Ampul.Neb IH Not Given Q6HRT HOWARD Budesonide 0.5 mg 10/18/20 10:45 Budesonide 0.5 Mg/2 Ml Nebu IH Q12HRT HOWARD Escitalopram Oxalate 5 mg 10/18/20 01:05 10/18/20 10:15 Escitalopram 10 Mg Tab PO 5 mg QDAY HOWARD Administration Famotidine 20 mg 10/17/20 10:00 10/18/20 10:15 Famotidine 20 Mg Tab PO 20 mg BID HOWARD Administration Heparin Sodium (Porcine) 5,000 unit 10/17/20 06:00 10/18/20 06:41 Heparin 5,000 Unit/1 Ml Vial SUB-Q 5,000 unit Q8HR HOWARD Administration Hydralazine HCl 10 mg 10/17/20 04:51 Hydralazine 20 Mg/1 Ml Inj IV Q6H PRN Blood Pressure Ceftriaxone Sodium 2 gm in 100 mls @ 200 mls/hr 10/17/20 05:00 10/18/20 06:41 Rocephin/Ns 2 Gm/100 Ml IV 200 mls/hr Q24H HOWARD Administration Protocol Azithromycin 500 mg in 250 mls @ 250 mls/hr 10/17/20 05:00 10/18/20 07:13 Zithromax/Ns IV 250 mls/hr Q24H HOWARD Administration Protocol Sodium Chloride 1,000 mls @ 75 mls/hr 10/18/20 10:45 Nacl 0.9% 1000 Ml IV 10/20/20 00:04 DIRECT HOWARD Nicotine 14 mg 10/17/20 21:00 10/18/20 10:15 Nicotine 14 Mg/24 Hr Patch TD 14 mg QDAY HOWARD Administration Ondansetron HCl 4 mg 10/17/20 04:48 Ondansetron 4 Mg/2 Ml Inj IV Q8H PRN Nausea And Vomiting Sodium Chloride 10 ml 10/17/20 10:00 10/18/20 10:15 Sodium Chloride 0.9% 10 Ml Flush Syringe IV 10 ml BID HOWARD Administration Sodium Chloride 10 ml 10/17/20 04:48 Sodium Chloride 0.9% 10 Ml Flush Syringe IV PRN PRN LINE FLUSH
--- NOTE | 2020-10-18 11:05 | XRay Report ---
XR chest 1V ap INDICATION / CLINICAL INFORMATION: pneumonia. COMPARISON: 10/16/2020. FINDINGS: SUPPORT DEVICES: None. HEART /PULMONARY VASCULATURE: Stable. LUNGS / PLEURA: Trace bibasilar pleural effusions are present. There is mild interstitial edema. No p neumothorax. ADDITIONAL FINDINGS: No significant additional findings. IMPRESSION: Unchanged mild CHF with interstitial edema. No new or increasing consolidation. Signer Name: Danny Bazzi MD Signed: 10/18/2020 11:01 AM Workstation Name: [id number]
[2020-10-18] MEDS: BUDESONIDE 0.5 MG/2 ML NEBU IH SCH ×2 (11:36→23:26)
--- NOTE | 2020-10-18 14:30 | Consultation ---
History of Present Illness Consult date: 10/18/20 Requesting physician: EPI VALDES Reason for consult: COPD, hypoxemia History of present illness: 75 y/o female admitted with acute respiratory failure, COVID negative. CTA negative for PE but shows some pulmonary edema and emphysematous changes. Patient is a smoker and is not on oxygen therapy at home. Past History Past Medical History: hypertension, other (Asthma) Medications and Allergies Allergies Allergy/AdvReac Type Severity Reaction Status Date / Time No Known Allergies Allergy Verified 10/17/20 05:00 Home Medications Medication Instructions Recorded Confirmed Last Taken Type Timolol Maleate/Pf [Timolol 1 each OP BID 10/19/20 10/19/20 Unknown History Maleate 0.5% Eye Drop] amLODIPine [Norvasc] 5 mg PO DAILY 10/19/20 10/19/20 Unknown History Active Meds: Active Medications Acetaminophen (Acetaminophen 325 Mg Tab) 650 mg PO Q4H PRN PRN Reason: Pain MILD(1-3)/Fever >100.5/PEREZ Albuterol (Albuterol 2.5 Mg/3 Ml Nebu) 2.5 mg IH Q4HRT PRN PRN Reason: Shortness Of Breath Albuterol/Ipratropium (Ipratropium/Albuterol Sulfate 3 Ml Ampul.Neb) 1 ampul IH Q6HRT [facility] Last Admin: 10/18/20 11:37 Dose: 1 ampul Documented by: Budesonide (Budesonide 0.5 Mg/2 Ml Nebu) 0.5 mg IH Q12HRT [facility] Last Admin: 10/18/20 11:36 Dose: 0.5 mg Documented by: Escitalopram Oxalate (Escitalopram 10 Mg Tab) 5 mg PO QDAY [facility] Last Admin: 10/18/20 10:15 Dose: 5 mg Documented by: Famotidine (Famotidine 20 Mg Tab) 20 mg PO BID [facility] Last Admin: 10/18/20 10:15 Dose: 20 mg Documented by: Heparin Sodium (Porcine) (Heparin 5,000 Unit/1 Ml Vial) 5,000 unit SUB-Q Q8HR [facility] Last Admin: 10/18/20 06:41 Dose: 5,000 unit Documented by: Hydralazine HCl (Hydralazine 20 Mg/1 Ml Inj) 10 mg IV Q6H PRN PRN Reason: Blood Pressure Ceftriaxone Sodium (Rocephin/Ns 2 Gm/100 Ml) 2 gm in 100 mls @ 200 mls/hr IV Q24H [facility]; Protocol Last Admin: 10/18/20 06:41 Dose: 200 mls/hr Documented by: Azithromycin (Zithromax/Ns) 500 mg in 250 mls @ 250 mls/hr IV Q24H [facility]; Protocol Last Admin: 10/18/20 07:13 Dose: 250 mls/hr Documented by: Nicotine (Nicotine 14 Mg/24 Hr Patch) 14 mg TD QDAY [facility] Last Admin: 10/18/20 10:15 Dose: 14 mg Documented by: Ondansetron HCl (Ondansetron 4 Mg/2 Ml Inj) 4 mg IV Q8H PRN PRN Reason: Nausea And Vomiting Prednisone (Prednisone 20 Mg Tab) 60 mg PO QDAY [facility] Sodium Chloride (Sodium Chloride 0.9% 10 Ml Flush Syringe) 10 ml IV BID [facility] Last Admin: 10/18/20 10:15 Dose: 10 ml Documented by: Sodium Chloride (Sodium Chloride 0.9% 10 Ml Flush Syringe) 10 ml IV PRN PRN PRN Reason: LINE FLUSH Review of Systems All systems: negative Physical Examination Vital signs: Vital Signs Temp Pulse Resp BP Pulse Ox 98.3 F 79 20 155/93 72 L 10/16/20 17:43 10/16/20 17:43 10/16/20 17:43 10/16/20 17:43 10/16/20 17:43 General appearance: no acute distress, alert, other (cachectic) Eyes: non-icteric ENT: oropharynx moist Neck: supple Effort: normal Ascultation: Bilateral: diminished breath sounds, wheezes Percussion: Bilateral: not dull Tactile fremitus: Bilateral: normal Cardiovascular: regular rate and rhythm Results - Laboratory Findings CBC and BMP: 10/18/20 05:11 10/18/20 05:11 PT/INR, D-dimer PT 15.1 Sec. (12.2-14.9) H 10/17/20 00:50 INR 1.13 (0.87-1.13) 10/17/20 00:50 D-Dimer 539.50 ng/mlDDU (0-234) H 10/17/20 03:32 Abnormal lab findings: Abnormal Labs 10/16/20 10/16/20 10/17/20 17:55 17:55 00:50 WBC 4.2 L RBC 5.63 H Hgb 15.6 H Hct 49.1 H RDW 15.4 H Monocytes % (Manual) PT 15.1 H D-Dimer 614.82 H Carbon Dioxide Glucose AST 41 H Total Protein 5.7 L Albumin 3.6 L 10/17/20 10/18/20 10/18/20 03:32 05:11 05:11 WBC RBC 5.15 H Hgb 14.4 H Hct 45.3 H RDW 15.4 H Monocytes % (Manual) 13.0 H PT D-Dimer 539.50 H Carbon Dioxide 34 H Glucose 111 H AST Total Protein Albumin - Diagnostic Findings Chest x-ray: image reviewed CT scan - chest: image reviewed Assessment and Plan 75 y/o female with acute exacerbation of obstructive lung disease 1. suggest echo to look for pulmonary HTN 2. Check BNP 3. Placed on Prednisone 60mg daily given emphysema seen on CT and hypoxic state 4. If BNP elevated would give lasix, can be oral 5. Needs full PFT as outpatient 6. Ok with pUlmicort and scheduled nebs Will continue to follow.
[2020-10-18] MEDS: predniSONE 20 MG TAB PO SCH (15:37)
[2020-10-18] MEDS ORDERED: FUROSEMIDE 20 MG TAB PO NR (18:04)
[2020-10-19] MEDS: IPRATROPIUM/ALBUTEROL SULFATE 3 ML AMPUL.NEB IH SCH ×4 (03:08→22:37)
[2020-10-19] MEDS: HEPARIN 5,000 UNIT/1 ML VIAL SUB-Q SCH ×3 (06:18→21:53)
[2020-10-19] MEDS: BUDESONIDE 0.5 MG/2 ML NEBU IH SCH ×2 (09:50→22:37)
--- NOTE | 2020-10-19 10:51 | Consultation ---
History of Present Illness Consult date: 10/19/20 Consult reason: congestive heart failure, shortness of breath History of present illness: The patient is a 75-year-old woman with a history of hypertension and chronic tobacco abuse. She was reportedly sent to the emergency room 2 days ago, with complaints of progressive shortness of breath and low oxygen saturation. Her oxygen saturation in the emergency room was 72%, she was evaluated and referred for admission. ER evaluation included CTA of the chest that was negative for pulmonary embolism, and a negative COVID-19 test. I will note that the patient has not had the COVID-19 vaccine. Additional evaluation in the hospital with a chest x-ray showed a mild to moderate severity cardiomegaly, with small bilateral pleural effusions and very mild interstitial edema. Troponin levels were negative. Cardiology consultatio n was requested for further evaluation of possible cardiogenic edema. The patient reports no chest pain, no palpitations, no lower extremity edema. No prior cardiac history. She is currently on the medical floor, comfortable on bedrest. An ECG was not done on presentation 2 days ago, but I ordered one this morning that shows a normal sinus rhythm, with T wave inversions in the inferior leads and additional T wave inversions in the anterior leads. There are no old EKG tracings available for comparative analysis. Past History Past Medical History: COPD, hypertension, other (Asthma) Medications and Allergies Allergies Allergy/AdvReac Type Severity Reaction Status Date / Time No Known Allergies Allergy Verified 10/17/20 05:00 Home Medications Medication Instructions Recorded Confirmed Last Taken Type Timolol Maleate/Pf [Timolol 1 each OP BID 10/19/20 10/19/20 Unknown History Maleate 0.5% Eye Drop] amLODIPine [Norvasc] 5 mg PO DAILY 10/19/20 10/19/20 Unknown History Active Meds: Active Medications Acetaminophen (Acetaminophen 325 Mg Tab) 650 mg PO Q4H PRN PRN Reason: Pain MILD(1-3)/Fever >100.5/PEREZ Albuterol (Albuterol 2.5 Mg/3 Ml Nebu) 2.5 mg IH Q4HRT PRN PRN Reason: Shortness Of Breath Albuterol/Ipratropium (Ipratropium/Albuterol Sulfate 3 Ml Ampul.Neb) 1 ampul IH Q6HRT [facility] Last Admin: 10/19/20 09:50 Dose: 1 ampul Documented by: Budesonide (Budesonide 0.5 Mg/2 Ml Nebu) 0.5 mg IH Q12HRT [facility] Last Admin: 10/19/20 09:50 Dose: 0.5 mg Documented by: Escitalopram Oxalate (Escitalopram 10 Mg Tab) 5 mg PO QDAY [facility] Last Admin: 10/18/20 10:15 Dose: 5 mg Documented by: Famotidine (Famotidine 20 Mg Tab) 20 mg PO BID [facility] Last Admin: 10/18/20 23:10 Dose: 20 mg Documented by: Heparin Sodium (Porcine) (Heparin 5,000 Unit/1 Ml Vial) 5,000 unit SUB-Q Q8HR [facility] Last Admin: 10/19/20 06:18 Dose: 5,000 unit Documented by: Hydralazine HCl (Hydralazine 20 Mg/1 Ml Inj) 10 mg IV Q6H PRN PRN Reason: Blood Pressure Nicotine (Nicotine 14 Mg/24 Hr Patch) 14 mg TD QDAY [facility] Last Admin: 10/18/20 10:15 Dose: 14 mg Documented by: Ondansetron HCl (Ondansetron 4 Mg/2 Ml Inj) 4 mg IV Q8H PRN PRN Reason: Nausea And Vomiting Prednisone (Prednisone 20 Mg Tab) 60 mg PO QDAY [facility] Last Admin: 10/18/20 15:37 Dose: Not Given Documented by: Sodium Chloride (Sodium Chloride 0.9% 10 Ml Flush Syringe) 10 ml IV BID [facility] Last Admin: 10/18/20 22:35 Dose: 10 ml Documented by: Sodium Chloride (Sodium Chloride 0.9% 10 Ml Flush Syringe) 10 ml IV PRN PRN PRN Reason: LINE FLUSH Review of Systems Cardiovascular: shortness of breath, dyspnea on exertion, no chest pain, no orthopnea, no palpitations, no rapid/irregular heart beat, no edema, no syncope, no lightheadedness Physical Examination Vital Signs Temp Pulse Resp BP Pulse Ox 98.3 F 79 20 155/93 72 L 10/16/20 17:43 10/16/20 17:43 10/16/20 17:43 10/16/20 17:43 10/16/20 17:43 General appearance: no acute distress HEENT: Positive: PERRL Neck: Positive: neck supple Cardiac: Positive: Reg Rate and Rhythm Lungs: Positive: Decreased Breath Sounds Neuro: Positive: Grossly Intact Abdomen: Positive: Soft Female genitourinary: deferred Skin: Positive: Clear Extremities: Absent: edema Results 10/18/20 05:11 10/18/20 05:11 EKG interpretations - Telemetry EKG Rhythm: Sinus Rhythm Assessment and Plan - Patient Problems (1) Congestive heart failure Current Visit: Yes Status: Acute Plan to address problem: Patient presents with shortness of breath, abnormal chest x-ray with cardiomegaly, interstitial edema and small bilateral pleural effusions, abnormal ECG with inferolateral T wave inversions. Patient's presentation will suggest possible congestive heart failure. We will treat with nitrates, diuretics, afterload agents and beta-blockers as tolerated. An echocardiogram will be done for left ventricular function assessment. Patient will ultimately benefit from a right and left heart catheterization for further assessment.
[2020-10-19] MEDS ORDERED: SODIUM CHLORIDE 0.9% 500 ML 500 ML IV SCH (11:00)
--- NOTE | 2020-10-19 11:46 | Progress Note ---
Assessment and Plan 75 y/o female with acute exacerbation of obstructive lung disease 1. suggest echo to look for pulmonary HTN 2. Check BNP 3. Placed on Prednisone 60mg daily given emphysema seen on CT and hypoxic state 4. If BNP elevated would give lasix, can be oral 5. Needs full PFT as outpatient 6. Ok with pUlmicort and scheduled nebs Will continue to follow. Subjective Date of service: 10/19/20 Interval history: Improving, still with some shortness of breath Objective Vital Signs - 12hr 10/19/20 10/19/20 10/19/20 01:00 01:29 05:48 Temperature 97.5 F L 97.9 F Pulse Rate 84 Pulse Rate [ Bilateral Throughout] Respiratory 18 22 Rate Respiratory Rate [Bilateral Throughout] Blood Pressure 98/62 Blood Pressure 114/74 [Right] O2 Sat by Pulse 99 Oximetry 10/19/20 10/19/20 06:28 09:50 Temperature Pulse Rate Pulse Rate [ 87 Bilateral Throughout] Respiratory Rate Respiratory 18 Rate [Bilateral Throughout] Blood Pressure Blood Pressure [Right] O2 Sat by Pulse 98 95 Oximetry CBC and BMP: 10/18/20 05:11 10/18/20 05:11 ABG, PT/INR, D-dimer: PT/INR, D-dimer PT 15.1 Sec. (12.2-14.9) H 10/17/20 00:50 INR 1.13 (0.87-1.13) 10/17/20 00:50 D-Dimer 539.50 ng/mlDDU (0-234) H 10/17/20 03:32 Abnormal lab findings: Abnormal Labs 10/16/20 10/16/20 10/17/20 17:55 17:55 00:50 WBC 4.2 L RBC 5.63 H Hgb 15.6 H Hct 49.1 H RDW 15.4 H Monocytes % (Manual) PT 15.1 H D-Dimer 614.82 H Carbon Dioxide Glucose AST 41 H NT-Pro-B Natriuret Pep Total Protein 5.7 L Albumin 3.6 L 10/17/20 10/18/20 10/18/20 03:32 05:11 05:11 WBC RBC 5.15 H Hgb 14.4 H Hct 45.3 H RDW 15.4 H Monocytes % (Manual) 13.0 H PT D-Dimer 539.50 H Carbon Dioxide 34 H Glucose 111 H AST NT-Pro-B Natriuret Pep Total Protein Albumin 10/18/20 05:11 WBC RBC Hgb Hct RDW Monocytes % (Manual) PT D-Dimer Carbon Dioxide Glucose AST NT-Pro-B Natriuret Pep 6014 H Total Protein Albumin
[2020-10-19] MEDS: ASPIRIN EC 81 MG TAB PO SCH (11:57)
[2020-10-19] MEDS: NICOTINE 14 MG/24 HR PATCH TD SCH (11:57)
[2020-10-19] MEDS: ESCITALOPRAM 10 MG TAB PO SCH (11:57)
[2020-10-19] MEDS: predniSONE 20 MG TAB PO SCH (11:58)
[2020-10-19] MEDS: FAMOTIDINE 20 MG TAB PO SCH ×2 (11:59→22:27)
[2020-10-19] MEDS: SPIRONOLACTONE 25 MG TAB PO SCH (11:59)
[2020-10-19] MEDS: FUROSEMIDE 20 MG/2 ML INJ IV SCH (18:12)
--- NOTE | 2020-10-19 21:07 | Progress Note ---
Assessment and Plan Assessment and plan: (1) Acute respiratory failure with hypoxia Admit the patient to the medical floor, etiology likely interstitial edema. doubt pneumonia Currently on supplemental oxygen 3 L/min DuoNeb by nebulizer every 4 hours. Budesonide every 12 hours COVID PCR negative Procal low, d/c Rocephin 2 g IV daily and Zithromax 500 mg IV daily. Discontinue dexamethasone 6 mg IV daily. blood culture and sputum culture ordered ECHO ordered Lasix 20 mg IV x1 Pulmonary consulted/following Pateint desaturated to 82% walking from bed to restroom off of oxygen. CM consult for home oxygen. (2) Cor Pulmonale Weak on encounter, afebrile, hypoxic Admission chest x-ray CTA chest: Negative for PE, interstitial infiltrates noted bilaterally. Official read per radiology BNP: 6014 ECHO ordered: ventricular dilation noted on ECHO. EF 65-70%. please refer to official read. Rt and Lt heart cath ordered by cardiology Cardiology consulted/following (3) Acute on Chronic Diastolic Heart Failure -Findings as per above. - Lasix 40 mg po bid - spironalactone (4) Hypertension Hydralazine 10 mg IV every 6 hours as needed. Takes amlodipine as home medication however states that she was told to discontinue by primary care doctor (5) Emphysema Emphysematous findings noted on CTA chest Nebulizers as above, does not appear to be in acute exacerbation (6) Suspected 2019 novel coronavirus infection Covid PCR negative Educated on obtaining Covid 19 vaccine (7) DVT prophylaxis Heparin 5000 units subcu every 8 hours for DVT prophylaxis. Pepcid 20 mg p.o. twice daily for GI prophylaxis. Patient is a full code Hospital course to date: 10/17: Admitted for acute hypoxic respiratory failure secondary to pneumonia. Currently on IV antibiotics. Pulmonary consulted on admission. Patient improved on subsequent encounter. Will titrate oxygen off as sats tolerate. Physical therapy consulted. Anticipate discharge tomorrow 10/18/2020: Clinically worsened today. Patient hypoxic upon ambulation. Patient may be fluid overloaded, will try one-time dose of Lasix. Echo ordered. Appears more weak. Added budesonide, incentive spirometry. Continuing antibiotics. Unfortunately patient cannot be discharged home today will await pulmonary recommendations.CM order placed for oxygen. 10/19/2020: Clinically improved. Breathing comfortably on room air. PT assessment demonstrates. Cardiology consulted due to echo finding ventricular dilation suspicious for cor pulmonale. Rt/Lt heart cath ordered. Optimizing with GDMT for CHF. CM consult was placed for acute rehab vs c PT. Will follow up results of cardiac cath. History Interval history: Resting comfortably on encounter. Speaking in complete sentences in no resp distress on room air (nasal cannula position on forehead). Hospitalist Physical - Physical exam Narrative exam: Physical Exam: Constitutional: Drowsy, cooperative. No acute distress. Frail, elderly woman Head, Ears, Nose: Normocephalic, atraumatic. External ears, nose normal Eyes: Conjunctivae/corneas clear. No icterus. No ptosis. Neck: Supple, no meningeal signs Oral: dentition fair, no thrush Cardiovascular: S1, S2 normal. Respiratory: Good air entry, bilateral wheezes (interval improvement) GI: Soft, non-tender; bowel sounds normal. No peritoneal signs. Musculoskeletal: No pedal edema, no cyanosis. Skin: No rash or abscess Hem/Lymphatic: No palpable cervical or supraclavicular nodes. No lymphangitis Psych: Mood ok. Affect normal Neurological: Awake, alert, oriented. No gross abnormality - Constitutional Vitals: Temp Pulse Resp BP Pulse Ox 99.4 F 85 16 116/71 96 10/19/20 16:42 10/19/20 16:42 10/19/20 16:42 10/19/20 16:42 10/19/20 18:00 General appearance: Present: no acute distress HEART Score - HEART Score Troponin: Troponin T < 0.010 ng/mL (0.00-0.029) 10/16/20 21:10 Results - Labs CBC & Chem 7: 10/18/20 05:11 10/18/20 05:11 Labs: Laboratory Last Values WBC 4.7 K/mm3 (4.5-11.0) 10/18/20 05:11 RBC 5.15 M/mm3 (3.65-5.03) H 10/18/20 05:11 Hgb 14.4 gm/dl (10.1-14.3) H 10/18/20 05:11 Hct 45.3 % (30.3-42.9) H 10/18/20 05:11 MCV 88 fl (79-97) 10/18/20 05:11 MCH 28 pg (28-32) 10/18/20 05:11 MCHC 32 % (30-34) 10/18/20 05:11 RDW 15.4 % (13.2-15.2) H 10/18/20 05:11 Plt Count 309 K/mm3 (140-440) 10/18/20 05:11 Lymph % (Auto) Tower Switch Operator 10/16/20 17:55 [place] % (Auto) Tower Switch Operator 10/18/20 05:11 Eos % (Auto) Tower Switch Operator 10/16/20 17:55 Baso % (Auto) Tower Switch Operator 10/16/20 17:55 Lymph # (Auto) Tower Switch Operator 10/16/20 17:55 [place] # (Auto) Tower Switch Operator 10/16/20 17:55 Eos # (Auto) Tower Switch Operator 10/16/20 17:55 Baso # (Auto) Tower Switch Operator 10/16/20 17:55 Add Manual Diff Complete 10/18/20 05:11 Total Counted 100 10/18/20 05:11 Seg Neutrophils % Tower Switch Operator 10/16/20 17:55 Seg Neuts % (Manual) 60.0 % (40.0-70.0) 10/18/20 05:11 Lymphocytes % (Manual) 27.0 % (13.4-35.0) 10/18/20 05:11 Monocytes % (Manual) 13.0 % (0.0-7.3) H 10/18/20 05:11 Nucleated RBC % Not Reportable 10/18/20 05:11 Seg Neutrophils # Tower Switch Operator 10/16/20 17:55 Seg Neutrophils # Man 2.8 K/mm3 (1.8-7.7) 10/18/20 05:11 Band Neutrophils # 0.0 K/mm3 10/18/20 05:11 Lymphocytes # (Manual) 1.3 K/mm3 (1.2-5.4) 10/18/20 05:11 Abs React Lymphs (Man) 0.0 K/mm3 10/18/20 05:11 Monocytes # (Manual) 0.6 K/mm3 (0.0-0.8) 10/18/20 05:11 Eosinophils # (Manual) 0.0 K/mm3 (0.0-0.4) 10/18/20 05:11 Basophils # (Manual) 0.0 K/mm3 (0.0-0.1) 10/18/20 05:11 Metamyelocytes # 0.0 K/mm3 10/18/20 05:11 Myelocytes # 0.0 K/mm3 10/18/20 05:11 Promyelocytes # 0.0 K/mm3 10/18/20 05:11 Blast Cells # 0.0 K/mm3 10/18/20 05:11 WBC Morphology Not Reportable 10/18/20 05:11 Hypersegmented Neuts Not Reportable 10/18/20 05:11 Hyposegmented Neuts Not Reportable 10/18/20 05:11 Hypogranular Neuts Not Reportable 10/18/20 05:11 Smudge Cells Not Reportable 10/18/20 05:11 Toxic Granulation Not Reportable 10/18/20 05:11 Toxic Vacuolation Not Reportable 10/18/20 05:11 Dohle Bodies Not Reportable 10/18/20 05:11 Pelger-Huet Anomaly Not Reportable 10/18/20 05:11 Millie Rods Not Reportable 10/18/20 05:11 Platelet Estimate Consistent w auto 10/18/20 05:11 Clumped Platelets Not Reportable 10/18/20 05:11 Plt Clumps, EDTA Not Reportable 10/18/20 05:11 Large Platelets Not Reportable 10/18/20 05:11 Giant Platelets Not Reportable 10/18/20 05:11 Platelet Satelliting Not Reportable 10/18/20 05:11 Plt Morphology Comment Not Reportable 10/18/20 05:11 RBC Morphology Normal 10/18/20 05:11 Dimorphic RBCs Not Reportable 10/18/20 05:11 Polychromasia Not Reportable 10/18/20 05:11 Hypochromasia Not Reportable 10/18/20 05:11 Poikilocytosis Not Reportable 10/18/20 05:11 Anisocytosis Not Reportable 10/18/20 05:11 Microcytosis Not Reportable 10/18/20 05:11 Macrocytosis Not Reportable 10/18/20 05:11 Spherocytes Not Reportable 10/18/20 05:11 Pappenheimer Bodies Not Reportable 10/18/20 05:11 Sickle Cells Not Reportable 10/18/20 05:11 Target Cells Not Reportable 10/18/20 05:11 Tear Drop Cells Not Reportable 10/18/20 05:11 Ovalocytes Not Reportable 10/18/20 05:11 Helmet Cells Not Reportable 10/18/20 05:11 [place] Bodies Not Reportable 10/18/20 05:11 [place] Rings Not Reportable 10/18/20 05:11 [place] Cells Not Reportable 10/18/20 05:11 Bite Cells Not Reportable 10/18/20 05:11 Crenated Cell Not Reportable 10/18/20 05:11 Elliptocytes Not Reportable 10/18/20 05:11 Acanthocytes (Spur) Not Reportable 10/18/20 05:11 Rouleaux Not Reportable 10/18/20 05:11 Hemoglobin C Crystals Not Reportable 10/18/20 05:11 Schistocytes Not Reportable 10/18/20 05:11 Malaria parasites Not Reportable 10/18/20 05:11 Lenny Bodies Not Reportable 10/18/20 05:11 Hem Pathologist Commnt No 10/18/20 05:11 PT 15.1 Sec. (12.2-14.9) H 10/17/20 00:50 INR 1.13 (0.87-1.13) 10/17/20 00:50 APTT 32.0 Sec. (24.2-36.6) 10/17/20 00:50 D-Dimer 539.50 ng/mlDDU (0-234) H 10/17/20 03:32 Sodium 141 mmol/L (137-145) 10/18/20 05:11 Potassium 5.0 mmol/L (3.6-5.0) 10/18/20 05:11 Chloride 100.9 mmol/L (98-107) 10/18/20 05:11 Carbon Dioxide 34 mmol/L (22-30) H 10/18/20 05:11 Anion Gap 11 mmol/L 10/18/20 05:11 BUN 12 mg/dL (7-17) 10/18/20 05:11 Creatinine 0.6 mg/dL (0.6-1.2) 10/18/20 05:11 Estimated GFR > 60 ml/min 10/18/20 05:11 BUN/Creatinine Ratio 20 % 10/18/20 05:11 Glucose 111 mg/dL (65-100) H 10/18/20 05:11 POC Glucose 160 mg/dL (70-105) H 10/19/20 17:25 Calcium 9.1 mg/dL (8.4-10.2) 10/18/20 05:11 Ferritin 15.6 ng/mL (10.0-200.0) 10/17/20 03:32 Total Bilirubin 0.30 mg/dL (0.1-1.2) 10/16/20 17:55 AST 41 units/L (5-40) H 10/16/20 17:55 ALT 50 units/L (7-56) 10/16/20 17:55 Alkaline Phosphatase 92 units/L (35-129) 10/16/20 17:55 Lactate Dehydrogenase 153 units/L (91-180) 10/17/20 03:32 Troponin T < 0.010 ng/mL (0.00-0.029) 10/16/20 21:10 C-Reactive Protein 0.70 mg/dL (0.00-1.30) 10/17/20 03:32 NT-Pro-B Natriuret Pep 6014 pg/mL (0-900) H 10/18/20 05:11 Total Protein 5.7 g/dL (6.3-8.2) L 10/16/20 17:55 Albumin 3.6 g/dL (3.9-5) L 10/16/20 17:55 Albumin/Globulin Ratio 1.7 % 10/16/20 17:55 Procalcitonin 0.44 ng/mL (<0.15) 10/17/20 03:32 Coronavirus (PCR) Negative (Negative) 10/17/20 09:00 Microbiology: Microbiology 10/17/20 03:32 Peripheral/Venous Blood Culture - Preliminary NO GROWTH AFTER 48 HOURS 10/17/20 03:32 Peripheral/Venous Blood Culture - Preliminary NO GROWTH AFTER 48 HOURS Diaz/IV: Voiding Method Toilet Active Medications - Current Medications Current Medications: Generic Name Dose Route Start Last Admin Trade Name Freq PRN Reason Stop Dose Admin Acetaminophen 650 mg 10/17/20 04:48 Acetaminophen 325 Mg Tab PO Q4H PRN Pain MILD(1-3)/Fever >100.5/PEREZ Albuterol 2.5 mg 10/17/20 04:48 Albuterol 2.5 Mg/3 Ml Nebu IH Q4HRT PRN Shortness Of Breath Albuterol/Ipratropium 1 ampul 10/17/20 08:00 10/19/20 18:09 Ipratropium/Albuterol Sulfate 3 Ml Ampul.Neb IH Not Given Q6HRT HOWARD Aspirin 81 mg 10/19/20 11:00 10/19/20 11:57 Aspirin Ec 81 Mg Tab PO 81 mg QDAY HOWARD Administration Budesonide 0.5 mg 10/18/20 11:30 10/19/20 09:50 Budesonide 0.5 Mg/2 Ml Nebu IH 0.5 mg Q12HRT HOWARD Administration Escitalopram Oxalate 5 mg 10/18/20 01:05 10/19/20 11:57 Escitalopram 10 Mg Tab PO 5 mg QDAY HOWARD Administration Famotidine 20 mg 10/17/20 10:00 10/19/20 11:59 Famotidine 20 Mg Tab PO 20 mg BID HOWARD Administration Furosemide 20 mg 10/19/20 18:00 10/19/20 18:12 Furosemide 20 Mg/2 Ml Inj IV 20 mg 0600,1800 HOWARD Administration Heparin Sodium (Porcine) 5,000 unit 10/17/20 06:00 10/19/20 14:00 Heparin 5,000 Unit/1 Ml Vial SUB-Q 5,000 unit Q8HR HOWARD Administration Hydralazine HCl 10 mg 10/17/20 04:51 Hydralazine 20 Mg/1 Ml Inj IV Q6H PRN Blood Pressure Nicotine 14 mg 10/17/20 21:00 10/19/20 11:57 Nicotine 14 Mg/24 Hr Patch TD 14 mg QDAY HOWARD Administration Ondansetron HCl 4 mg 10/17/20 04:48 Ondansetron 4 Mg/2 Ml Inj IV Q8H PRN Nausea And Vomiting Prednisone 60 mg 10/18/20 15:00 10/19/20 11:58 Prednisone 20 Mg Tab PO 60 mg QDAY HOWARD Administration Sodium Chloride 10 ml 10/17/20 10:00 10/19/20 11:59 Sodium Chloride 0.9% 10 Ml Flush Syringe IV 10 ml BID HOWARD Administration Sodium Chloride 10 ml 10/17/20 04:48 Sodium Chloride 0.9% 10 Ml Flush Syringe IV PRN PRN LINE FLUSH Spironolactone 25 mg 10/19/20 11:00 10/19/20 11:59 Spironolactone 25 Mg Tab PO 25 mg QDAY HOWARD Administration
[2020-10-20] MEDS: IPRATROPIUM/ALBUTEROL SULFATE 3 ML AMPUL.NEB IH SCH ×4 (03:54→20:37)
[2020-10-20] MEDS: HEPARIN 5,000 UNIT/1 ML VIAL SUB-Q SCH ×3 (05:15→22:08)
[2020-10-20] MEDS: FUROSEMIDE 20 MG/2 ML INJ IV SCH ×2 (06:34→21:54)
[2020-10-20] MEDS: BUDESONIDE 0.5 MG/2 ML NEBU IH SCH ×2 (09:03→20:37)
--- NOTE | 2020-10-20 09:35 | Progress Note ---
Assessment and Plan Assessment and plan: Lexiscan stress test tomorrow per cardiology -- Acute respiratory failure with hypoxia Admit the patient to the medical floor, etiology likely interstitial edema. doubt pneumonia Currently on supplemental oxygen 3 L/min DuoNeb by nebulizer every 4 hours. Budesonide every 12 hours COVID PCR negative Procal low, d/c Rocephin 2 g IV daily and Zithromax 500 mg IV daily. Discontinue dexamethasone 6 mg IV daily. blood culture and sputum culture ordered ECHO ordered Lasix 20 mg IV x1 Pulmonary consulted/following Pateint desaturated to 82% walking from bed to restroom off of oxygen. CM consult for home oxygen. -- Cor Pulmonale/moderate to severe pulmonary hypertension on echo Weak on encounter, afebrile, hypoxic Admission chest x-ray CTA chest: Negative for PE, interstitial infiltrates noted bilaterally. Official read per radiology BNP: 6014 ECHO ordered: ventricular dilation noted on ECHO. EF 65-70%. Moderate to severe pulmonary hypertension Rt and Lt heart cath ordered by cardiology Cardiology consulted/following --Acute on Chronic Diastolic Heart Failure -Findings as per above. - Lasix 40 mg po bid - spironalactone -- Hypertension Hydralazine 10 mg IV every 6 hours as needed. Takes amlodipine as home medication however states that she was told to discontinue by primary care doctor -- Emphysema Emphysematous findings noted on CTA chest Nebulizers as above, does not appear to be in acute exacerbation --Negative COVID-19 test Covid PCR negative Educated on obtaining Covid 19 vaccine, --Ongoing tobacco use; strongly advised to quit tobacco use and consider nicotine patch as needed Patient verbalized understanding -- DVT prophylaxis Heparin 5000 units subcu every 8 hours for DVT prophylaxis. Pepcid 20 mg p.o. twice daily for GI prophylaxis. Patient is a full code Hospital course to date: 10/17: Admitted for acute hypoxic respiratory failure secondary to pneumonia. Currently on IV antibiotics. Pulmonary consulted on admission. Patient improved on subsequent encounter. Will titrate oxygen off as sats tolerate. Physical therapy consulted. Anticipate discharge tomorrow 10/18/2020: Clinically worsened today. Patient hypoxic upon ambulation. Patient may be fluid overloaded, will try one-time dose of Lasix. Echo ordered. Appe ars more weak. Added budesonide, incentive spirometry. Continuing antibiotics. Unfortunately patient cannot be discharged home today will await pulmonary recommendations.CM order placed for oxygen. 10/19/2020: Clinically improved. Breathing comfortably on room air. PT assessment demonstrates. Cardiology consulted due to echo finding ventricular dilation suspicious for cor pulmonale. Rt/Lt heart cath ordered. Optimizing with GDMT for CHF. CM consult was placed for acute rehab vs [facility] PT. Will follow up results of cardiac cath 10/20/2020; echocardiogram; moderate to severe pulmonary hypertension Stress test tomorrow per cardiology History Interval history: I have seen and examined the patient at the bedside Patient's chart and medications reviewed Patient complains of shortness of breath Vital signs noted Hospitalist Physical - Constitutional Vitals: Temp Pulse Resp BP Pulse Ox 98.3 F 83 18 124/77 97 10/20/20 03:44 10/20/20 09:23 10/20/20 09:23 10/20/20 03:44 10/20/20 09:03 General appearance: Present: no acute distress, well-nourished - EENT Eyes: Present: PERRL, EOM intact - Neck Neck: Present: supple, normal ROM - Respiratory Respiratory effort: normal Respiratory: bilateral: diminished, rales, rhonchi, negative: wheezing - Cardiovascular Rhythm: regular Heart Sounds: Present: S1 & S2 - Extremities Extremities: no ischemia, No edema - Abdominal General gastrointestinal: soft, non-tender, non-distended, normal bowel sounds - Integumentary Integumentary: Present: clear, warm - Psychiatric Psychiatric: appropriate mood/affect, cooperative - Neurologic Neurologic: CNII-XII intact, moves all extremities HEART Score - HEART Score Troponin: Troponin T < 0.010 ng/mL (0.00-0.029) 10/16/20 21:10 Results - Labs CBC & Chem 7: 10/18/20 05:11 10/18/20 05:11 Labs: Laboratory Last Values WBC 4.7 K/mm3 (4.5-11.0) 10/18/20 05:11 RBC 5.15 M/mm3 (3.65-5.03) H 10/18/20 05:11 Hgb 14.4 gm/dl (10.1-14.3) H 10/18/20 05:11 Hct 45.3 % (30.3-42.9) H 10/18/20 05:11 MCV 88 fl (79-97) 10/18/20 05:11 MCH 28 pg (28-32) 10/18/20 05:11 MCHC 32 % (30-34) 10/18/20 05:11 RDW 15.4 % (13.2-15.2) H 10/18/20 05:11 Plt Count 309 K/mm3 (140-440) 10/18/20 05:11 Lymph % (Auto) Rocket Motor Tester 10/16/20 17:55 [place] % (Auto) Rocket Motor Tester 10/18/20 05:11 Eos % (Auto) Rocket Motor Tester 10/16/20 17:55 Baso % (Auto) Rocket Motor Tester 10/16/20 17:55 Lymph # (Auto) Rocket Motor Tester 10/16/20 17:55 [place] # (Auto) Rocket Motor Tester 10/16/20 17:55 Eos # (Auto) Rocket Motor Tester 10/16/20 17:55 Baso # (Auto) Rocket Motor Tester 10/16/20 17:55 Add Manual Diff Complete 10/18/20 05:11 Total Counted 100 10/18/20 05:11 Seg Neutrophils % Rocket Motor Tester 10/16/20 17:55 Seg Neuts % (Manual) 60.0 % (40.0-70.0) 10/18/20 05:11 Lymphocytes % (Manual) 27.0 % (13.4-35.0) 10/18/20 05:11 Monocytes % (Manual) 13.0 % (0.0-7.3) H 10/18/20 05:11 Nucleated RBC % Not Reportable 10/18/20 05:11 Seg Neutrophils # Rocket Motor Tester 10/16/20 17:55 Seg Neutrophils # Man 2.8 K/mm3 (1.8-7.7) 10/18/20 05:11 Band Neutrophils # 0.0 K/mm3 10/18/20 05:11 Lymphocytes # (Manual) 1.3 K/mm3 (1.2-5.4) 10/18/20 05:11 Abs React Lymphs (Man) 0.0 K/mm3 10/18/20 05:11 Monocytes # (Manual) 0.6 K/mm3 (0.0-0.8) 10/18/20 05:11 Eosinophils # (Manual) 0.0 K/mm3 (0.0-0.4) 10/18/20 05:11 Basophils # (Manual) 0.0 K/mm3 (0.0-0.1) 10/18/20 05:11 Metamyelocytes # 0.0 K/mm3 10/18/20 05:11 Myelocytes # 0.0 K/mm3 10/18/20 05:11 Promyelocytes # 0.0 K/mm3 10/18/20 05:11 Blast Cells # 0.0 K/mm3 10/18/20 05:11 WBC Morphology Not Reportable 10/18/20 05:11 Hypersegmented Neuts Not Reportable 10/18/20 05:11 Hyposegmented Neuts Not Reportable 10/18/20 05:11 Hypogranular Neuts Not Reportable 10/18/20 05:11 Smudge Cells Not Reportable 10/18/20 05:11 Toxic Granulation Not Reportable 10/18/20 05:11 Toxic Vacuolation Not Reportable 10/18/20 05:11 Dohle Bodies Not Reportable 10/18/20 05:11 [place] Anomaly Not Reportable 10/18/20 05:11 Millie Rods Not Reportable 10/18/20 05:11 Platelet Estimate Consistent w auto 10/18/20 05:11 Clumped Platelets Not Reportable 10/18/20 05:11 Plt Clumps, EDTA Not Reportable 10/18/20 05:11 Large Platelets Not Reportable 10/18/20 05:11 Giant Platelets Not Reportable 10/18/20 05:11 Platelet Satelliting Not Reportable 10/18/20 05:11 Plt Morphology Comment Not Reportable 10/18/20 05:11 RBC Morphology Normal 10/18/20 05:11 Dimorphic RBCs Not Reportable 10/18/20 05:11 Polychromasia Not Reportable 10/18/20 05:11 Hypochromasia Not Reportable 10/18/20 05:11 Poikilocytosis Not Reportable 10/18/20 05:11 Anisocytosis Not Reportable 10/18/20 05:11 Microcytosis Not Reportable 10/18/20 05:11 Macrocytosis Not Reportable 10/18/20 05:11 Spherocytes Not Reportable 10/18/20 05:11 Pappenheimer Bodies Not Reportable 10/18/20 05:11 Sickle Cells Not Reportable 10/18/20 05:11 Target Cells Not Reportable 10/18/20 05:11 Tear Drop Cells Not Reportable 10/18/20 05:11 Ovalocytes Not Reportable 10/18/20 05:11 Helmet Cells Not Reportable 10/18/20 05:11 [place] Bodies Not Reportable 10/18/20 05:11 [place] Rings Not Reportable 10/18/20 05:11 [place] Cells Not Reportable 10/18/20 05:11 Bite Cells Not Reportable 10/18/20 05:11 Crenated Cell Not Reportable 10/18/20 05:11 Elliptocytes Not Reportable 10/18/20 05:11 Acanthocytes (Spur) Not Reportable 10/18/20 05:11 Rouleaux Not Reportable 10/18/20 05:11 Hemoglobin C Crystals Not Reportable 10/18/20 05:11 Schistocytes Not Reportable 10/18/20 05:11 Malaria parasites Not Reportable 10/18/20 05:11 [place] Bodies Not Reportable 10/18/20 05:11 Hem Pathologist Commnt No 10/18/20 05:11 PT 15.1 Sec. (12.2-14.9) H 10/17/20 00:50 INR 1.13 (0.87-1.13) 10/17/20 00:50 APTT 32.0 Sec. (24.2-36.6) 10/17/20 00:50 D-Dimer 539.50 ng/mlDDU (0-234) H 10/17/20 03:32 Sodium 141 mmol/L (137-145) 10/18/20 05:11 Potassium 5.0 mmol/L (3.6-5.0) 10/18/20 05:11 Chloride 100.9 mmol/L (98-107) 10/18/20 05:11 Carbon Dioxide 34 mmol/L (22-30) H 10/18/20 05:11 Anion Gap 11 mmol/L 10/18/20 05:11 BUN 12 mg/dL (7-17) 10/18/20 05:11 Creatinine 0.6 mg/dL (0.6-1.2) 10/18/20 05:11 Estimated GFR > 60 ml/min 10/18/20 05:11 BUN/Creatinine Ratio 20 % 10/18/20 05:11 Glucose 111 mg/dL (65-100) H 10/18/20 05:11 POC Glucose 133 mg/dL (70-105) H 10/20/20 06:33 Calcium 9.1 mg/dL (8.4-10.2) 10/18/20 05:11 Ferritin 15.6 ng/mL (10.0-200.0) 10/17/20 03:32 Total Bilirubin 0.30 mg/dL (0.1-1.2) 10/16/20 17:55 AST 41 units/L (5-40) H 10/16/20 17:55 ALT 50 units/L (7-56) 10/16/20 17:55 Alkaline Phosphatase 92 units/L (35-129) 10/16/20 17:55 Lactate Dehydrogenase 153 units/L (91-180) 10/17/20 03:32 Troponin T < 0.010 ng/mL (0.00-0.029) 10/16/20 21:10 C-Reactive Protein 0.70 mg/dL (0.00-1.30) 10/17/20 03:32 NT-Pro-B Natriuret Pep 6014 pg/mL (0-900) H 10/18/20 05:11 Total Protein 5.7 g/dL (6.3-8.2) L 10/16/20 17:55 Albumin 3.6 g/dL (3.9-5) L 10/16/20 17:55 Albumin/Globulin Ratio 1.7 % 10/16/20 17:55 Procalcitonin 0.44 ng/mL (<0.15) 10/17/20 03:32 Coronavirus (PCR) Negative (Negative) 10/17/20 09:00 Microbiology: Microbiology 10/17/20 03:32 Peripheral/Venous Blood Culture - Preliminary NO GROWTH AFTER 48 HOURS 10/17/20 03:32 Peripheral/Venous Blood Culture - Preliminary NO GROWTH AFTER 48 HOURS Diaz/IV: Voiding Method Toilet Active Medications - Current Medications Current Medications: Generic Name Dose Route Start Last Admin Trade Name Freq PRN Reason Stop Dose Admin Acetaminophen 650 mg 10/17/20 04:48 Acetaminophen 325 Mg Tab PO Q4H PRN Pain MILD(1-3)/Fever >100.5/PEREZ Albuterol 2.5 mg 10/17/20 04:48 Albuterol 2.5 Mg/3 Ml Nebu IH Q4HRT PRN Shortness Of Breath Albuterol/Ipratropium 1 ampul 10/17/20 08:00 10/20/20 09:03 Ipratropium/Albuterol Sulfate 3 Ml Ampul.Neb IH 1 ampul Q6HRT HOWARD Administration Aspirin 81 mg 10/19/20 11:00 10/19/20 11:57 Aspirin Ec 81 Mg Tab PO 81 mg QDAY HOWARD Administration Budesonide 0.5 mg 10/18/20 11:30 10/20/20 09:03 Budesonide 0.5 Mg/2 Ml Nebu IH 0.5 mg Q12HRT HOWARD Administration Escitalopram Oxalate 5 mg 10/18/20 01:05 10/19/20 11:57 Escitalopram 10 Mg Tab PO 5 mg QDAY HOWARD Administration Famotidine 20 mg 10/17/20 10:00 10/19/20 22:27 Famotidine 20 Mg Tab PO 20 mg BID HOWARD Administration Furosemide 20 mg 10/19/20 18:00 10/20/20 06:34 Furosemide 20 Mg/2 Ml Inj IV 20 mg 0600,1800 HOWARD Administration Heparin Sodium (Porcine) 5,000 unit 10/17/20 06:00 10/20/20 05:15 Heparin 5,000 Unit/1 Ml Vial SUB-Q Not Given Q8HR HOWARD Hydralazine HCl 10 mg 10/17/20 04:51 Hydralazine 20 Mg/1 Ml Inj IV Q6H PRN Blood Pressure Nicotine 14 mg 10/17/20 21:00 10/19/20 11:57 Nicotine 14 Mg/24 Hr Patch TD 14 mg QDAY HOWARD Administration Ondansetron HCl 4 mg 10/17/20 04:48 Ondansetron 4 Mg/2 Ml Inj IV Q8H PRN Nausea And Vomiting Prednisone 60 mg 10/18/20 15:00 10/19/20 11:58 Prednisone 20 Mg Tab PO 60 mg QDAY HOWARD Administration Sodium Chloride 10 ml 10/17/20 10:00 10/20/20 06:35 Sodium Chloride 0.9% 10 Ml Flush Syringe IV 10 ml BID HOWARD Administration Sodium Chloride 10 ml 10/17/20 04:48 Sodium Chloride 0.9% 10 Ml Flush Syringe IV PRN PRN LINE FLUSH Spironolactone 25 mg 10/19/20 11:00 10/19/20 11:59 Spironolactone 25 Mg Tab PO 25 mg QDAY HOWARD Administration
[2020-10-20] MEDS: FAMOTIDINE 20 MG TAB PO SCH ×2 (10:53→22:08)
--- NOTE | 2020-10-20 12:00 | Progress Note ---
Assessment and Plan Shortness of breath associated with hypoxia Echocardiogram: severe dilation of the right heart chambers with at least moderate TR and moderate to severe pulmonary hypertension, RVSP 55-60 mmHg. Findings consistent with severe cor pulmonale. CTA: no evidence of PE. Abnormal ECG normal sinus rhythm with T wave inversions in the inferior leads and additional T wave inversions in the anterior leads. There are no old EKG tracings available for comparative analysis. Hypertension Chronic tobacco abuse Recommendations: Management of sever cor-pulmonale as per the primary team and pulmonary. Lexiscan thallium stress test before discharge. This will be done tomorrow morning. Subjective Date of service: 10/20/20 Interval history: Patient has no complaints. Objective Vital Signs Temp Pulse Pulse Resp Resp BP Pulse Ox 10/20/20 09:23 83 18 10/20/20 09:03 97 10/20/20 06:00 94 10/20/20 03:44 98.3 F 73 18 124/77 100 10/19/20 22:00 100 10/19/20 21:07 98.4 F 86 18 116/71 100 10/19/20 20:00 90 20 10/19/20 18:00 96 10/19/20 16:42 99.4 F 85 16 116/71 97 - Physical Examination General: No Apparent Distress HEENT: Positive: PERRL Neck: Positive: neck supple Cardiac: Positive: Reg Rate and Rhythm Lungs: Positive: Decreased Breath Sounds Neuro: Positive: Grossly Intact Abdomen: Positive: Soft Extremities: Absent: edema
--- NOTE | 2020-10-20 12:23 | Progress Note ---
Assessment and Plan 75 y/o female with acute exacerbation of obstructive lung disease 10/20/20: Agree with lasix started by cards, needs to be transitioned to oral therapy. Will need to follow up with us for full PFT to determine the degree of COPD. At this time please just discharge with rescue inhaler for PRN use, can determine what she needs long acting from the office. Will need walk test to determine oxygen needs as I suspect she will need it. STart to taper steroids as follows: Prednisone 60 daily for 1 day then 40 daily for 3 days, then 20 da willie for 3 days then stop. No objection to discharge home in the next 24-36 hours. 1. suggest echo to look for pulmonary HTN 2. Check BNP 3. Placed on Prednisone 60mg daily given emphysema seen on CT and hypoxic state 4. If BNP elevated would give lasix, can be oral 5. Needs full PFT as outpatient 6. Ok with pUlmicort and scheduled nebs Will continue to follow. Subjective Date of service: 10/20/20 Interval history: Patient has severe pulm HTN, likely from untreated COPD. STable on 2 liters. Objective Vital Signs - 12hr 10/20/20 10/20/20 10/20/20 03:44 06:00 09:03 Temperature 98.3 F Pulse Rate 73 Pulse Rate [ Bilateral Throughout] Respiratory 18 Rate Respiratory Rate [Bilateral Throughout] Blood Pressure 124/77 O2 Sat by Pulse 100 94 97 Oximetry 10/20/20 09:23 Temperature Pulse Rate Pulse Rate [ 83 Bilateral Throughout] Respiratory Rate Respiratory 18 Rate [Bilateral Throughout] Blood Pressure O2 Sat by Pulse Oximetry CBC and BMP: 10/18/20 05:11 10/18/20 05:11 ABG, PT/INR, D-dimer: PT/INR, D-dimer PT 15.1 Sec. (12.2-14.9) H 10/17/20 00:50 INR 1.13 (0.87-1.13) 10/17/20 00:50 D-Dimer 539.50 ng/mlDDU (0-234) H 10/17/20 03:32 Abnormal lab findings: Abnormal Labs 10/16/20 10/16/20 10/17/20 17:55 17:55 00:50 WBC 4.2 L RBC 5.63 H Hgb 15.6 H Hct 49.1 H RDW 15.4 H Monocytes % (Manual) PT 15.1 H D-Dimer 614.82 H Carbon Dioxide Glucose POC Glucose AST 41 H NT-Pro-B Natriuret Pep Total Protein 5.7 L Albumin 3.6 L 10/17/20 10/18/20 10/18/20 03:32 05:11 05:11 WBC RBC 5.15 H Hgb 14.4 H Hct 45.3 H RDW 15.4 H Monocytes % (Manual) 13.0 H PT D-Dimer 539.50 H Carbon Dioxide 34 H Glucose 111 H POC Glucose AST NT-Pro-B Natriuret Pep Total Protein Albumin 10/18/20 10/19/20 10/19/20 05:11 17:25 21:02 WBC RBC Hgb Hct RDW Monocytes % (Manual) PT D-Dimer Carbon Dioxide Glucose POC Glucose 160 H 314 H AST NT-Pro-B Natriuret Pep 6014 H Total Protein Albumin 10/20/20 10/20/20 03:30 06:33 WBC RBC Hgb Hct RDW Monocytes % (Manual) PT D-Dimer Carbon Dioxide Glucose POC Glucose 122 H 133 H AST NT-Pro-B Natriuret Pep Total Protein Albumin
--- NOTE | 2020-10-20 17:42 | Electrocardiograph Report ---
[facility] Test Date: 2020-10-19 Test Time: 10:32:20 Pat Name: NAY LU Department: Room: A392 1 Gender: F Charge Coordinator: GLORY : 1945 Requested By: SHARLA SAMSON Order Number: [id number] Reading MD: Sharla Samson Measurements Intervals [place] Rate: 84 P: 68 AK: 141 QRS: -73 QRSD: 99 T: -55 QT: 368 QTc: 435 Interpretive Statements Sinus rhythm Ventricular premature complex Probable left atrial enlargement T wave inversions, consider inferolateral ischemia Anteroseptal infarct, age indeterminate No previous ECG available for comparison Electronically Signed On 10-20-2020 17:42:14 EDT by Sharla Samson
[2020-10-20] MEDS: SPIRONOLACTONE 25 MG TAB PO SCH (18:00)
[2020-10-20] MEDS: predniSONE 20 MG TAB PO SCH (18:50)
[2020-10-20] MEDS: NICOTINE 14 MG/24 HR PATCH TD SCH (18:51)
[2020-10-20] MEDS: ASPIRIN EC 81 MG TAB PO SCH (19:00)
[2020-10-20] MEDS: ESCITALOPRAM 10 MG TAB PO SCH (21:51)
[2020-10-21] MEDS: IPRATROPIUM/ALBUTEROL SULFATE 3 ML AMPUL.NEB IH SCH ×4 (04:20→22:52)
[2020-10-21] MEDS: HEPARIN 5,000 UNIT/1 ML VIAL SUB-Q SCH ×3 (06:33→23:19)
[2020-10-21] MEDS ORDERED: REGADENOSON 0.4 MG/5 ML INJ IV ONE (07:08)
--- NOTE | 2020-10-21 07:13 | Progress Note ---
Assessment and Plan 75 y/o female with acute exacerbation of obstructive lung disease Continue lasix therapy, hopeful to switch over to oral medications soon. Follow up luis. Currently on Prednisone 60 daily and suggest the taper listed in yesterday's note. She will need to follow up with us for full PFT to assess degree of obstruction. If patient does end up needing LHC, please do RHC as well. Per patient requests to speak with case management. Nurse was in room when she asked about this but likely needs CM consult. Smoking cessation Will continue to follow. Subjective Date of service: 10/21/20 Interval history: Awake and alert. Having Natalie scan this am. Per patient does not want to go home as the situation there is stressful. Breathing is better and stable. Objective Vital Signs - 12hr 10/20/20 10/20/20 10/20/20 20:39 20:42 21:32 Temperature 98.3 F Pulse Rate 97 H Pulse Rate [ 101 H Bilateral Throughout] Respiratory 18 Rate Respiratory 17 Rate [Bilateral Throughout] Blood Pressure 122/63 O2 Sat by Pulse 98 100 Oximetry 10/20/20 10/21/20 22:00 06:03 Temperature 98.3 F Pulse Rate 75 Pulse Rate [ Bilateral Throughout] Respiratory 16 Rate Respiratory Rate [Bilateral Throughout] Blood Pressure 158/97 O2 Sat by Pulse 94 100 Oximetry Constitutional: no acute distress, alert, other (cachectic) Eyes: non-icteric ENT: oropharynx moist Neck: supple Effort: normal Ascultation: Bilateral: diminished breath sounds, wheezes Percussion: Bilateral: not dull Tactile fremitus: Bilateral: normal Cardiovascular: regular rate and rhythm CBC and BMP: 10/18/20 05:11 10/18/20 05:11 ABG, PT/INR, D-dimer: PT/INR, D-dimer PT 15.1 Sec. (12.2-14.9) H 10/17/20 00:50 INR 1.13 (0.87-1.13) 10/17/20 00:50 D-Dimer 539.50 ng/mlDDU (0-234) H 10/17/20 03:32 Abnormal lab findings: Abnormal Labs 10/16/20 10/16/20 10/17/20 17:55 17:55 00:50 WBC 4.2 L RBC 5.63 H Hgb 15.6 H Hct 49.1 H RDW 15.4 H Monocytes % (Manual) PT 15.1 H D-Dimer 614.82 H Carbon Dioxide Glucose POC Glucose AST 41 H NT-Pro-B Natriuret Pep Total Protein 5.7 L Albumin 3.6 L 10/17/20 10/18/20 10/18/20 03:32 05:11 05:11 WBC RBC 5.15 H Hgb 14.4 H Hct 45.3 H RDW 15.4 H Monocytes % (Manual) 13.0 H PT D-Dimer 539.50 H Carbon Dioxide 34 H Glucose 111 H POC Glucose AST NT-Pro-B Natriuret Pep Total Protein Albumin 10/18/20 10/19/20 10/19/20 05:11 17:25 21:02 WBC RBC Hgb Hct RDW Monocytes % (Manual) PT D-Dimer Carbon Dioxide Glucose POC Glucose 160 H 314 H AST NT-Pro-B Natriuret Pep 6014 H Total Protein Albumin 10/20/20 10/20/20 10/20/20 03:30 06:33 17:42 WBC RBC Hgb Hct RDW Monocytes % (Manual) PT D-Dimer Carbon Dioxide Glucose POC Glucose 122 H 133 H 111 H AST NT-Pro-B Natriuret Pep Total Protein Albumin 10/20/20 10/21/20 22:34 05:59 WBC RBC Hgb Hct RDW Monocytes % (Manual) PT D-Dimer Carbon Dioxide Glucose POC Glucose 162 H 123 H AST NT-Pro-B Natriuret Pep Total Protein Albumin
--- NOTE | 2020-10-21 08:34 | Progress Note ---
Assessment and Plan Shortness of breath associated with hypoxia Echocardiogram: severe dilation of the right heart chambers with at least moderate TR and moderate to severe pulmonary hypertension, RVSP 55-60 mmHg. Findings consistent with severe cor pulmonale. Left heart chamber size and function is normal, EF 55-60%. CTA: no evidence of PE. Abnormal ECG normal sinus rhythm with T wave inversions in the inferior leads and additional T wave inversions in the anterior leads. There are no old EKG tracings available for comparative analysis. Hypertension Chronic tobacco abuse Recommendations: Lexiscan thallium stress test for ischemia assessment today, results are pending. Otherwise plan for outpatient pulmonary evaluation for further assessment and treatment of pulmonary hypertension and cor pulmonale. Patient has also been strongly recommended to stop smoking. Subjective Date of service: 10/21/20 Interval history: Patient has no complaints. For thallium stress test today. Objective Vital Signs Temp Pulse Pulse Resp Resp BP Pulse Ox 10/21/20 06:03 98.3 F 75 16 158/97 100 10/20/20 22:00 94 10/20/20 21:32 98.3 F 97 H 18 122/63 100 10/20/20 20:42 98 10/20/20 20:39 101 H 17 10/20/20 18:00 96 10/20/20 17:52 97.9 F 75 16 95/53 97 10/20/20 17:44 98.2 F 89 16 164/91 100 10/20/20 14:09 78 20 10/20/20 13:13 98.6 F 79 20 107/71 92 10/20/20 09:23 83 18 10/20/20 09:03 97 - Physical Examination General: No Apparent Distress HEENT: Positive: PERRL Neck: Positive: neck supple Cardiac: Positive: Reg Rate and Rhythm Lungs: Positive: Decreased Breath Sounds Neuro: Positive: Grossly Intact Abdomen: Positive: Soft Extremities: Absent: edema
[2020-10-21] MEDS: NICOTINE 14 MG/24 HR PATCH TD SCH (11:22)
[2020-10-21] MEDS: SPIRONOLACTONE 25 MG TAB PO SCH (11:22)
[2020-10-21] MEDS: ESCITALOPRAM 10 MG TAB PO SCH (11:22)
[2020-10-21] MEDS: ASPIRIN EC 81 MG TAB PO SCH (11:22)
[2020-10-21] MEDS: FAMOTIDINE 20 MG TAB PO SCH ×2 (11:22→23:18)
[2020-10-21] MEDS: predniSONE 20 MG TAB PO SCH (11:22)
[2020-10-21] MEDS: BUDESONIDE 0.5 MG/2 ML NEBU IH SCH ×2 (11:44→22:53)
--- NOTE | 2020-10-21 12:48 | Nuclear Medicine Report ---
APPROVED REPORT Exam: Nuclear Stress Test Indication: Chest pain Patient Location: [address] [place] [address] Room #: A392 Ht: 4 ft 11 in Wt: 82 lbs BSA: 1.26 m2 BMI: 16.55 Rhythm: NSR Stress Test Details Stress Test: Pharmacologic stress testing performed using 0.4 mg of regadenoson per 5 mL given IV over 10 seconds. HR Resting HR: 66 bpm Max HR Achieved: 99 bpm Max Heart Rate (APMHR): 145 bpm Target HR (85% APMHR): 123 bpm % of APMHR: 68 Recovery HR: 83 bpm HR response to stress: Normal HR response to stress BP Resting BP: 142/82 mmHg Max BP: 156/107 mmHg Recovery BP: 133/79 mmHg BP response to stress: Abnormal hypertensive response to stress. ECG Resting ECG: Sinus Rhythm Stress ECG: Sinus Rhythm ST Change: None Arrhythmia: Occasional VPC's Recovery ECG: Sinus Rhythm Recovery ST Change: None Recovery Arrhythmia: None, None Clinical Reason for Termination: Completed protocol Stress Symptoms: Weakness Stress ECG Conclusion No chest pain and no ST changes of ischemia with pharmacologic stress testing, myocardial perfusion images are pending for final test interpretation. NM EXAM: Myocardial Perfusion REST/STRESS Imaging Protocol: Rest Tc-99m/Stress Tc-99m 1 day Resting Data Rest SPECT myocardial perfusion imaging was performed in supine position 45 minutes following the intravenous injection of 10 mCi of Tc-99m Myoview. Time of rest injection: 0630 Pharmacologic Stress Pharmacologic stress test was performed by injecting Regadenoson 0.4 mg IV push followed by the intravenous injection of 28 mCi of Tc-99m Myoview. Time of stress injection: 0915 Gated Stress SPECT was performed 30 minutes after stress injection. The images were gated to evaluate regional wall motion and calculate left ventricular ejection fraction. Study Data TID = 1.07. Perfusion Nuclear Conclusion ECG Findings: negative for ischemia Clinical Findings: negative for ischemia Nuclear Findings: negative for ischemia Left Ventricular Function: normal Risk Study: low Normal rest and stress myocardial perfusion study, normal left ventricular systolic function, ejection fraction greater than 70%. Conclusion No chest pain and no ST changes of ischemia with pharmacologic stress testing, myocardial perfusion images are pending for final test interpretation.
--- NOTE | 2020-10-21 14:54 | Progress Note ---
Assessment and Plan Assessment and plan: Lexiscan stress test negative for ischemia, LVEF normal Pulmonary following to manage for moderate to severe pulmonary hypertension -- Acute respiratory failure with hypoxia Currently on supplemental oxygen 3 L/min DuoNeb by nebulizer every 4 hours. Budesonide every 12 hours COVID PCR negative Procal low, d/c Rocephin 2 g IV daily and Zithromax 500 mg IV daily. Discontinue dexamethasone 6 mg IV daily. blood culture and sputum culture ordered ECHO moderate to severe pulmonary hypertension Pulmonary cardiology following Pateint desaturated to 82% walking from bed to restroom off of oxygen. CM consult for home oxygen. -- Cor Pulmonale/moderate to severe pulmonary hypertension on echo CTA chest: Negative for PE, interstitial infiltrates noted bilaterally. Official read per radiology ECHO ordered: ventricular dilation noted on ECHO. EF 65-70%. Moderate to severe pulmonary hypertension Rt and Lt heart cath ordered by cardiology Cardiology pulmonary following --Acute on Chronic Diastolic Heart Failure -Findings as per above. - Lasix 40 mg po bid - spironalactone -- Hypertension Hydralazine 10 mg IV every 6 hours as needed. Takes amlodipine as home medication however states that she was told to discontinue by primary care doctor -- Emphysema Emphysematous findings noted on CTA chest Nebulizers as above, does not appear to be in acute exacerbation --Negative COVID-19 test Covid PCR negative Educated on obtaining Covid 19 vaccine, --Ongoing tobacco use; strongly advised to quit tobacco use and consider nicotine patch as needed Patient verbalized understanding -- DVT prophylaxis Heparin 5000 units subcu every 8 hours for DVT prophylaxis. Pepcid 20 mg p.o. twice daily for GI prophylaxis. Patient is a full code Hospital course to date: 10/17: Admitted for acute hypoxic respiratory failure secondary to pneumonia. Currently on IV antibiotics. Pulmonary consulted on admission. Patient improved on subsequent encounter. Will titrate oxygen off as sats tolerate. Physical therapy consulted. Anticipate discharge tomorrow 10/18/2020: Clinically worsened today. Patient hypoxic upon ambulation. Patient may be fluid overloaded, will try one-time dose of Lasix. Echo ordered. Appears more weak. Added budesonide, incentive spirometry. Continuing antibiotics. Unfortunately patient cannot be discharged home today will await pulmonary recommendations.CM order placed for oxygen. 10/19/2020: Clinically improved. Breathing comfortably on room air. PT assessment demonstrates. Cardiology consulted due to echo finding ventricular dilation suspicious for cor pulmonale. Rt/Lt heart cath ordered. Optimizing with GDMT for CHF. CM consult was placed for acute rehab vs [facility] PT. Will follow up results of cardiac cath 10/20/2020; echocardiogram; moderate to severe pulmonary hypertension Stress test tomorrow per cardiology 10/21/2020; stress test negative for ischemia, normal LVEF, echo moderate to severe pulmonary hypertension Management per pulmonary . History Interval history: I have seen and examined the patient at the bedside Patient's chart and medications reviewed Patient underwent stress test/negative for reversible ischemia normal EF Echocardiogram findings consistent with moderate to severe pulmonary hypertension Pulmonary cardiology following Vital signs noted Hospitalist Physical - Constitutional Vitals: Temp Pulse Resp BP Pulse Ox 98.3 F 75 16 137/78 96 10/21/20 06:03 10/21/20 06:03 10/21/20 06:03 10/21/20 11:22 10/21/20 10:00 General appearance: Present: no acute distress, well-nourished - EENT Eyes: Present: PERRL, EOM intact - Neck Neck: Present: supple, normal ROM - Respiratory Respiratory effort: normal Respiratory: bilateral: diminished, negative: rales, rhonchi, wheezing - Cardiovascular Rhythm: regular Heart Sounds: Present: S1 & S2 - Extremities Extremities: no ischemia, No edema - Abdominal General gastrointestinal: soft, non-tender, non-distended, normal bowel sounds - Integumentary Integumentary: Present: clear, warm - Psychiatric Psychiatric: appropriate mood/affect, cooperative - Neurologic Neurologic: CNII-XII intact, moves all extremities HEART Score - HEART Score Troponin: Troponin T < 0.010 ng/mL (0.00-0.029) 10/16/20 21:10 Results - Labs CBC & Chem 7: 10/18/20 05:11 10/18/20 05:11 Labs: Laboratory Last Values WBC 4.7 K/mm3 (4.5-11.0) 10/18/20 05:11 RBC 5.15 M/mm3 (3.65-5.03) H 10/18/20 05:11 Hgb 14.4 gm/dl (10.1-14.3) H 10/18/20 05:11 Hct 45.3 % (30.3-42.9) H 10/18/20 05:11 MCV 88 fl (79-97) 10/18/20 05:11 MCH 28 pg (28-32) 10/18/20 05:11 MCHC 32 % (30-34) 10/18/20 05:11 RDW 15.4 % (13.2-15.2) H 10/18/20 05:11 Plt Count 309 K/mm3 (140-440) 10/18/20 05:11 Lymph % (Auto) Knife Machine Operator 10/16/20 17:55 [place] % (Auto) Knife Machine Operator 10/18/20 05:11 Eos % (Auto) Knife Machine Operator 10/16/20 17:55 Baso % (Auto) Knife Machine Operator 10/16/20 17:55 Lymph # (Auto) Knife Machine Operator 10/16/20 17:55 [place] # (Auto) Knife Machine Operator 10/16/20 17:55 Eos # (Auto) Knife Machine Operator 10/16/20 17:55 Baso # (Auto) Knife Machine Operator 10/16/20 17:55 Add Manual Diff Complete 10/18/20 05:11 Total Counted 100 10/18/20 05:11 Seg Neutrophils % Knife Machine Operator 10/16/20 17:55 Seg Neuts % (Manual) 60.0 % (40.0-70.0) 10/18/20 05:11 Lymphocytes % (Manual) 27.0 % (13.4-35.0) 10/18/20 05:11 Monocytes % (Manual) 13.0 % (0.0-7.3) H 10/18/20 05:11 Nucleated RBC % Not Reportable 10/18/20 05:11 Seg Neutrophils # Knife Machine Operator 10/16/20 17:55 Seg Neutrophils # Man 2.8 K/mm3 (1.8-7.7) 10/18/20 05:11 Band Neutrophils # 0.0 K/mm3 10/18/20 05:11 Lymphocytes # (Manual) 1.3 K/mm3 (1.2-5.4) 10/18/20 05:11 Abs React Lymphs (Man) 0.0 K/mm3 10/18/20 05:11 Monocytes # (Manual) 0.6 K/mm3 (0.0-0.8) 10/18/20 05:11 Eosinophils # (Manual) 0.0 K/mm3 (0.0-0.4) 10/18/20 05:11 Basophils # (Manual) 0.0 K/mm3 (0.0-0.1) 10/18/20 05:11 Metamyelocytes # 0.0 K/mm3 10/18/20 05:11 Myelocytes # 0.0 K/mm3 10/18/20 05:11 Promyelocytes # 0.0 K/mm3 10/18/20 05:11 Blast Cells # 0.0 K/mm3 10/18/20 05:11 WBC Morphology Not Reportable 10/18/20 05:11 Hypersegmented Neuts Not Reportable 10/18/20 05:11 Hyposegmented Neuts Not Reportable 10/18/20 05:11 Hypogranular Neuts Not Reportable 10/18/20 05:11 Smudge Cells Not Reportable 10/18/20 05:11 Toxic Granulation Not Reportable 10/18/20 05:11 Toxic Vacuolation Not Reportable 10/18/20 05:11 Dohle Bodies Not Reportable 10/18/20 05:11 Pelger-Huet Anomaly Not Reportable 10/18/20 05:11 Millie Rods Not Reportable 10/18/20 05:11 Platelet Estimate Consistent w auto 10/18/20 05:11 Clumped Platelets Not Reportable 10/18/20 05:11 Plt Clumps, EDTA Not Reportable 10/18/20 05:11 Large Platelets Not Reportable 10/18/20 05:11 Giant Platelets Not Reportable 10/18/20 05:11 Platelet Satelliting Not Reportable 10/18/20 05:11 Plt Morphology Comment Not Reportable 10/18/20 05:11 RBC Morphology Normal 10/18/20 05:11 Dimorphic RBCs Not Reportable 10/18/20 05:11 Polychromasia Not Reportable 10/18/20 05:11 Hypochromasia Not Reportable 10/18/20 05:11 Poikilocytosis Not Reportable 10/18/20 05:11 Anisocytosis Not Reportable 10/18/20 05:11 Microcytosis Not Reportable 10/18/20 05:11 Macrocytosis Not Reportable 10/18/20 05:11 Spherocytes Not Reportable 10/18/20 05:11 Pappenheimer Bodies Not Reportable 10/18/20 05:11 Sickle Cells Not Reportable 10/18/20 05:11 Target Cells Not Reportable 10/18/20 05:11 Tear Drop Cells Not Reportable 10/18/20 05:11 Ovalocytes Not Reportable 10/18/20 05:11 Helmet Cells Not Reportable 10/18/20 05:11 [place] Bodies Not Reportable 10/18/20 05:11 [place] Rings Not Reportable 10/18/20 05:11 [place] Cells Not Reportable 10/18/20 05:11 Bite Cells Not Reportable 10/18/20 05:11 Crenated Cell Not Reportable 10/18/20 05:11 Elliptocytes Not Reportable 10/18/20 05:11 Acanthocytes (Spur) Not Reportable 10/18/20 05:11 Rouleaux Not Reportable 10/18/20 05:11 Hemoglobin C Crystals Not Reportable 10/18/20 05:11 Schistocytes Not Reportable 10/18/20 05:11 Malaria parasites Not Reportable 10/18/20 05:11 Lenny Bodies Not Reportable 10/18/20 05:11 Hem Pathologist Commnt No 10/18/20 05:11 PT 15.1 Sec. (12.2-14.9) H 10/17/20 00:50 INR 1.13 (0.87-1.13) 10/17/20 00:50 APTT 32.0 Sec. (24.2-36.6) 10/17/20 00:50 D-Dimer 539.50 ng/mlDDU (0-234) H 10/17/20 03:32 Sodium 141 mmol/L (137-145) 10/18/20 05:11 Potassium 5.0 mmol/L (3.6-5.0) 10/18/20 05:11 Chloride 100.9 mmol/L (98-107) 10/18/20 05:11 Carbon Dioxide 34 mmol/L (22-30) H 10/18/20 05:11 Anion Gap 11 mmol/L 10/18/20 05:11 BUN 12 mg/dL (7-17) 10/18/20 05:11 Creatinine 0.6 mg/dL (0.6-1.2) 10/18/20 05:11 Estimated GFR > 60 ml/min 10/18/20 05:11 BUN/Creatinine Ratio 20 % 10/18/20 05:11 Glucose 111 mg/dL (65-100) H 10/18/20 05:11 POC Glucose 123 mg/dL (70-105) H 10/21/20 05:59 Calcium 9.1 mg/dL (8.4-10.2) 10/18/20 05:11 Ferritin 15.6 ng/mL (10.0-200.0) 10/17/20 03:32 Total Bilirubin 0.30 mg/dL (0.1-1.2) 10/16/20 17:55 AST 41 units/L (5-40) H 10/16/20 17:55 ALT 50 units/L (7-56) 10/16/20 17:55 Alkaline Phosphatase 92 units/L (35-129) 10/16/20 17:55 Lactate Dehydrogenase 153 units/L (91-180) 10/17/20 03:32 Troponin T < 0.010 ng/mL (0.00-0.029) 10/16/20 21:10 C-Reactive Protein 0.70 mg/dL (0.00-1.30) 10/17/20 03:32 NT-Pro-B Natriuret Pep 6014 pg/mL (0-900) H 10/18/20 05:11 Total Protein 5.7 g/dL (6.3-8.2) L 10/16/20 17:55 Albumin 3.6 g/dL (3.9-5) L 10/16/20 17:55 Albumin/Globulin Ratio 1.7 % 10/16/20 17:55 Procalcitonin 0.44 ng/mL (<0.15) 10/17/20 03:32 Coronavirus (PCR) Negative (Negative) 10/17/20 09:00 Microbiology: Microbiology 10/17/20 03:32 Peripheral/Venous Blood Culture - Preliminary NO GROWTH AFTER 4 DAYS 10/17/20 03:32 Peripheral/Venous Blood Culture - Preliminary NO GROWTH AFTER 4 DAYS Diaz/IV: Voiding Method Toilet Active Medications - Current Medications Current Medications: Generic Name Dose Route Start Last Admin Trade Name Freq PRN Reason Stop Dose Admin Acetaminophen 650 mg 10/17/20 04:48 Acetaminophen 325 Mg Tab PO Q4H PRN Pain MILD(1-3)/Fever >100.5/PEREZ Albuterol 2.5 mg 10/17/20 04:48 Albuterol 2.5 Mg/3 Ml Nebu IH Q4HRT PRN Shortness Of Breath Albuterol/Ipratropium 1 ampul 10/17/20 08:00 10/21/20 11:44 Ipratropium/Albuterol Sulfate 3 Ml Ampul.Neb IH Not Given Q6HRT HOWARD Aspirin 81 mg 10/19/20 11:00 10/21/20 11:22 Aspirin Ec 81 Mg Tab PO 81 mg QDAY HOWARD Administration Budesonide 0.5 mg 10/18/20 11:30 10/21/20 11:44 Budesonide 0.5 Mg/2 Ml Nebu IH Not Given Q12HRT HOWARD Escitalopram Oxalate 5 mg 10/18/20 01:05 10/21/20 11:22 Escitalopram 10 Mg Tab PO 5 mg QDAY HOWARD Administration Famotidine 20 mg 10/17/20 10:00 10/21/20 11:22 Famotidine 20 Mg Tab PO 20 mg BID HOWARD Administration Furosemide 20 mg 10/19/20 18:00 10/20/20 21:54 Furosemide 20 Mg/2 Ml Inj IV 20 mg 0600,1800 HOWARD Administration Heparin Sodium (Porcine) 5,000 unit 10/17/20 06:00 10/21/20 06:33 Heparin 5,000 Unit/1 Ml Vial SUB-Q 5,000 unit Q8HR HOWARD Administration Hydralazine HCl 10 mg 10/17/20 04:51 Hydralazine 20 Mg/1 Ml Inj IV Q6H PRN Blood Pressure Nicotine 14 mg 10/17/20 21:00 10/21/20 11:22 Nicotine 14 Mg/24 Hr Patch TD 14 mg QDAY HOWARD Administration Ondansetron HCl 4 mg 10/17/20 04:48 Ondansetron 4 Mg/2 Ml Inj IV Q8H PRN Nausea And Vomiting Prednisone 60 mg 10/18/20 15:00 10/21/20 11:22 Prednisone 20 Mg Tab PO 60 mg QDAY HOWARD Administration Sodium Chloride 10 ml 10/17/20 10:00 10/21/20 11:23 Sodium Chloride 0.9% 10 Ml Flush Syringe IV 10 ml BID HOWARD Administration Sodium Chloride 10 ml 10/17/20 04:48 Sodium Chloride 0.9% 10 Ml Flush Syringe IV PRN PRN LINE FLUSH Spironolactone 25 mg 10/19/20 11:00 10/21/20 11:22 Spironolactone 25 Mg Tab PO 25 mg QDAY HOWARD Administration
--- NOTE | 2020-10-21 19:41 | Event Note ---
Date: 10/21/20 I called patient's daughter and spoke with . Karen Unno, at [phone] at the bedside in detail patient's condition, treatment plan, tests and reports Discharge planning, she had numerous questions, answered all of them, and encouraged her to call back if she has any new questions or concerns She was appreciative of my call, patient's nurse was at the bedside
[2020-10-22] MEDS: IPRATROPIUM/ALBUTEROL SULFATE 3 ML AMPUL.NEB IH SCH ×4 (05:33→23:15)
[2020-10-22] MEDS: FUROSEMIDE 20 MG/2 ML INJ IV SCH (06:43)
[2020-10-22] MEDS: HEPARIN 5,000 UNIT/1 ML VIAL SUB-Q SCH ×3 (06:44→22:43)
--- NOTE | 2020-10-22 09:57 | Progress Note ---
<DARWIN DUFFY - Last Filed: 10/22/20 09:54> Assessment and Plan Shortness of breath associated with hypoxia Echocardiogram: severe dilation of the right heart chambers with at least moderate TR and moderate to severe pulmonary hypertension, RVSP 55-60 mmHg. Findings consistent with severe cor pulmonale. Left heart chamber size and function is normal, EF 55-60%. CTA: no evidence of PE. Abnormal ECG normal sinus rhythm with T wave inversions in the inferior leads and additional T wave inversions in the anterior leads. There are no old EKG tracings available for comparative analysis. Lexiscan this admission: normal perfusion Hypertension Chronic tobacco abuse Recommendations: Advised smoking cessation and outpatient pulmonary evaluation for cor pulmonale. Patient is stable for cardiac discharge. Subjective Date of service: 10/22/20 Interval history: Patient is resting in bed and appears comfortable. She denies shortness of breath. Objective Vital Signs Temp Pulse Pulse Resp Resp BP Pulse Ox 10/22/20 06:03 98.5 F 64 18 138/74 95 10/22/20 05:34 98 10/21/20 22:56 97 10/21/20 22:55 102 H 16 10/21/20 22:00 94 10/21/20 21:11 98.9 F 75 18 158/89 97 10/21/20 19:07 20 97 10/21/20 14:22 96 H 18 10/21/20 11:22 137/78 10/21/20 10:00 96 - Physical Examination General: No Apparent Distress HEENT: Positive: PERRL Neck: Positive: neck supple Cardiac: Positive: Reg Rate and Rhythm Lungs: Positive: Decreased Breath Sounds Neuro: Positive: Grossly Intact Abdomen: Positive: Soft Extremities: Absent: edema <EDGARDO MARTINEZ - Last Filed: 10/27/20 07:27> Subjective Interval history: I SAW THIS PT & AGREE WITH THE Dx & Tx PLAN.
[2020-10-22] MEDS: predniSONE 20 MG TAB PO SCH (10:51)
[2020-10-22] MEDS: ASPIRIN EC 81 MG TAB PO SCH (10:51)
[2020-10-22] MEDS: FAMOTIDINE 20 MG TAB PO SCH ×2 (10:51→22:42)
[2020-10-22] MEDS: ESCITALOPRAM 10 MG TAB PO SCH (10:51)
[2020-10-22] MEDS: NICOTINE 14 MG/24 HR PATCH TD SCH (10:52)
[2020-10-22] MEDS: SPIRONOLACTONE 25 MG TAB PO SCH (10:52)
[2020-10-22] MEDS: BUDESONIDE 0.5 MG/2 ML NEBU IH SCH ×2 (14:37→23:16)
--- NOTE | 2020-10-22 14:52 | Progress Note ---
Assessment and Plan 75 y/o female with acute exacerbation of obstructive lung disease 10/22/20: Pulm status is unchanged and my recs are the same. Taper as listed in note from 10/20. No objection to discharge pulm combs. Continue lasix therapy, hopeful to switch over to oral medications soon. Follow up lexiscan. Currently on Prednisone 60 daily and suggest the taper listed in yesterday's note. She will need to follow up with us for full PFT to assess degree of obstruction. If patient does end up needing LHC, please do RHC as well. Per patient requests to speak with case management. Nurse was in room when she asked about this but likely needs CM consult. Smoking cessation Will continue to follow. Subjective Date of service: 10/22/20 Interval history: No acute events. Had brandon scan this morning. STable on 2 liters. Objective Vital Signs - 12hr 10/22/20 10/22/20 10/22/20 05:34 06:03 10:00 Temperature 98.5 F Pulse Rate 64 Pulse Rate [ 89 Apical] Pulse Rate [ Bilateral Throughout] Respiratory 18 Rate Respiratory Rate [Bilateral Throughout] Blood Pressure 138/74 Blood Pressure [Right] O2 Sat by Pulse 98 95 94 Oximetry 10/22/20 10/22/20 10/22/20 10:52 10:57 14:00 Temperature 98.1 F Pulse Rate 76 76 Pulse Rate [ Apical] Pulse Rate [ 94 H Bilateral Throughout] Respiratory 17 Rate Respiratory 18 Rate [Bilateral Throughout] Blood Pressure 128/65 Blood Pressure 128/65 [Right] O2 Sat by Pulse 96 Oximetry Constitutional: no acute distress, alert, other (cachectic) Eyes: non-icteric ENT: oropharynx moist Neck: supple Effort: normal Ascultation: Bilateral: diminished breath sounds, wheezes Percussion: Bilateral: not dull Tactile fremitus: Bilateral: normal Cardiovascular: regular rate and rhythm CBC and BMP: 10/18/20 05:11 10/18/20 05:11 ABG, PT/INR, D-dimer: PT/INR, D-dimer PT 15.1 Sec. (12.2-14.9) H 10/17/20 00:50 INR 1.13 (0.87-1.13) 10/17/20 00:50 D-Dimer 539.50 ng/mlDDU (0-234) H 10/17/20 03:32 Abnormal lab findings: Abnormal Labs 10/16/20 10/16/20 10/17/20 17:55 17:55 00:50 WBC 4.2 L RBC 5.63 H Hgb 15.6 H Hct 49.1 H RDW 15.4 H Monocytes % (Manual) PT 15.1 H D-Dimer 614.82 H Carbon Dioxide Glucose POC Glucose AST 41 H NT-Pro-B Natriuret Pep Total Protein 5.7 L Albumin 3.6 L 10/17/20 10/18/20 10/18/20 03:32 05:11 05:11 WBC RBC 5.15 H Hgb 14.4 H Hct 45.3 H RDW 15.4 H Monocytes % (Manual) 13.0 H PT D-Dimer 539.50 H Carbon Dioxide 34 H Glucose 111 H POC Glucose AST NT-Pro-B Natriuret Pep Total Protein Albumin 10/18/20 10/19/20 10/19/20 05:11 17:25 21:02 WBC RBC Hgb Hct RDW Monocytes % (Manual) PT D-Dimer Carbon Dioxide Glucose POC Glucose 160 H 314 H AST NT-Pro-B Natriuret Pep 6014 H Total Protein Albumin 10/20/20 10/20/20 10/20/20 03:30 06:33 17:42 WBC RBC Hgb Hct RDW Monocytes % (Manual) PT D-Dimer Carbon Dioxide Glucose POC Glucose 122 H 133 H 111 H AST NT-Pro-B Natriuret Pep Total Protein Albumin 10/20/20 10/21/20 22:34 05:59 WBC RBC Hgb Hct RDW Monocytes % (Manual) PT D-Dimer Carbon Dioxide Glucose POC Glucose 162 H 123 H AST NT-Pro-B Natriuret Pep Total Protein Albumin
--- NOTE | 2020-10-22 20:58 | Progress Note ---
Assessment and Plan Assessment and plan: I called patient's daughter and spoke with . Karen Nuno, at [phone] at the bedside in detail patient's condition, treatment plan, tests and reports Discharge planning, she had numerous questions, answered all of them, and encouraged her to call back if she has any new questions or concerns, She was appreciative of my call, patient's nurse was at the bedside --Negative COVID-19 test -- Acute respiratory failure with hypoxia Currently on supplemental oxygen 3 L/min DuoNeb by nebulizer every 4 hours. Budesonide every 12 hours COVID PCR negative Procal low, d/c Rocephin 2 g IV daily and Zithromax 500 mg IV daily. Discontinue dexamethasone 6 mg IV daily. blood culture and sputum culture ordered ECHO moderate to severe pulmonary hypertension Pulmonary cardiology following Pateint desaturated to 82% walking from bed to restroom off of oxygen. CM c onsult for home oxygen. -- Cor Pulmonale/moderate to severe pulmonary hypertension on echo continue current management, pulmonary following Continue supportive care, home O2 evaluation prior to discharge Optimize medications, possible discharge in 1 to 2 days if stable CTA chest: Negative for PE, interstitial infiltrates noted bilaterally. Official read per radiology ECHO EF 65-70%. Moderate to severe pulmonary hypertension Cardiology pulmonary following --Acute on Chronic Diastolic Heart Failure -Findings as per above. - Lasix 40 mg po bid - spironalactone Lexiscan stress test negative for ischemia, LVEF normal -- Hypertension Hydralazine 10 mg IV every 6 hours as needed. Takes amlodipine as home medication however states that she was told to discontinue by primary care doctor -- Emphysema Emphysematous findings noted on CTA chest Nebulizers as above, does not appear to be in acute exacerbation --Ongoing tobacco use; strongly advised to quit tobacco use and consider nicotine patch as needed Patient verbalized understanding -- DVT prophylaxis Heparin 5000 units subcu every 8 hours for DVT prophylaxis. Pepcid 20 mg p.o. twice daily for GI prophylaxis. Patient is a full code Hospital course to date: 10/17: Admitted for acute hypoxic respiratory failure secondary to pneumonia. Currently on IV antibiotics. Pulmonary consulted on admission. Patient improved on subsequent encounter. Will titrate oxygen off as sats tolerate. Physical therapy consulted. Anticipate discharge tomorrow 10/18/2020: Clinically worsened today. Patient hypoxic upon ambulation. Patient may be fluid overloaded, will try one-time dose of Lasix. Echo ordered. Appears more weak. Added budesonide, incentive spirometry. Continuing antibiotics. Unfortunately patient cannot be discharged home today will await pulmonary recommendations.CM order placed for oxygen. 10/19/2020: Clinically improved. Breathing comfortably on room air. PT assessment demonstrates. Cardiology consulted due to echo finding ventricular dilation suspicious for cor pulmonale. Rt/Lt heart cath ordered. Optimizing with GDMT for CHF. CM consult was placed for acute rehab vs [facility] PT. Will follow up results of cardiac cath 10/20/2020; echocardiogram; moderate to severe pulmonary hypertension Stress test tomorrow per cardiology 10/21/2020; stress test negative for ischemia, normal LVEF, echo moderate to severe pulmonary hypertension Management per pulmonary . 10/22/2020; patient feels slightly better today, increase ambulation, home O2 evaluation Possible discharge home tomorrow if stable with home health History Interval history: I have seen and examined the patient at the bedside Patient's chart and medications reviewed No new events reported by the nursing staff Still has some shortness of breath Vital signs noted Hospitalist Physical - Constitutional Vitals: Temp Pulse Resp BP Pulse Ox 97.9 F 87 17 131/77 97 10/22/20 16:45 10/22/20 16:45 10/22/20 16:45 10/22/20 16:45 10/22/20 16:45 General appearance: Present: no acute distress, well-nourished - EENT Eyes: Present: PERRL, EOM intact - Neck Neck: Present: supple, normal ROM - Respiratory Respiratory effort: normal Respiratory: bilateral: diminished, rales, negative: rhonchi, wheezing - Cardiovascular Rhythm: regular Heart Sounds: Present: S1 & S2 - Extremities Extremities: no ischemia, No edema - Abdominal General gastrointestinal: soft, non-tender, non-distended, normal bowel sounds - Integumentary Integumentary: Present: clear, warm - Psychiatric Psychiatric: other (Minimally communicative, confused at times) - Neurologic Neurologic: CNII-XII intact, moves all extremities HEART Score - HEART Score Troponin: Troponin T < 0.010 ng/mL (0.00-0.029) 10/16/20 21:10 Results - Labs CBC & Chem 7: 10/18/20 05:11 10/18/20 05:11 Labs: Laboratory Last Values WBC 4.7 K/mm3 (4.5-11.0) 10/18/20 05:11 RBC 5.15 M/mm3 (3.65-5.03) H 10/18/20 05:11 Hgb 14.4 gm/dl (10.1-14.3) H 10/18/20 05:11 Hct 45.3 % (30.3-42.9) H 10/18/20 05:11 MCV 88 fl (79-97) 10/18/20 05:11 MCH 28 pg (28-32) 10/18/20 05:11 MCHC 32 % (30-34) 10/18/20 05:11 RDW 15.4 % (13.2-15.2) H 10/18/20 05:11 Plt Count 309 K/mm3 (140-440) 10/18/20 05:11 Lymph % (Auto) Firer Portable Boiler 10/16/20 17:55 Irion % (Auto) Firer Portable Boiler 10/18/20 05:11 Eos % (Auto) Firer Portable Boiler 10/16/20 17:55 Baso % (Auto) Firer Portable Boiler 10/16/20 17:55 Lymph # (Auto) Firer Portable Boiler 10/16/20 17:55 Irion # (Auto) Firer Portable Boiler 10/16/20 17:55 Eos # (Auto) Firer Portable Boiler 10/16/20 17:55 Baso # (Auto) Firer Portable Boiler 10/16/20 17:55 Add Manual Diff Complete 10/18/20 05:11 Total Counted 100 10/18/20 05:11 Seg Neutrophils % Firer Portable Boiler 10/16/20 17:55 Seg Neuts % (Manual) 60.0 % (40.0-70.0) 10/18/20 05:11 Lymphocytes % (Manual) 27.0 % (13.4-35.0) 10/18/20 05:11 Monocytes % (Manual) 13.0 % (0.0-7.3) H 10/18/20 05:11 Nucleated RBC % Not Reportable 10/18/20 05:11 Seg Neutrophils # Firer Portable Boiler 10/16/20 17:55 Seg Neutrophils # Man 2.8 K/mm3 (1.8-7.7) 10/18/20 05:11 Band Neutrophils # 0.0 K/mm3 10/18/20 05:11 Lymphocytes # (Manual) 1.3 K/mm3 (1.2-5.4) 10/18/20 05:11 Abs React Lymphs (Man) 0.0 K/mm3 10/18/20 05:11 Monocytes # (Manual) 0.6 K/mm3 (0.0-0.8) 10/18/20 05:11 Eosinophils # (Manual) 0.0 K/mm3 (0.0-0.4) 10/18/20 05:11 Basophils # (Manual) 0.0 K/mm3 (0.0-0.1) 10/18/20 05:11 Metamyelocytes # 0.0 K/mm3 10/18/20 05:11 Myelocytes # 0.0 K/mm3 10/18/20 05:11 Promyelocytes # 0.0 K/mm3 10/18/20 05:11 Blast Cells # 0.0 K/mm3 10/18/20 05:11 WBC Morphology Not Reportable 10/18/20 05:11 Hypersegmented Neuts Not Reportable 10/18/20 05:11 Hyposegmented Neuts Not Reportable 10/18/20 05:11 Hypogranular Neuts Not Reportable 10/18/20 05:11 Smudge Cells Not Reportable 10/18/20 05:11 Toxic Granulation Not Reportable 10/18/20 05:11 Toxic Vacuolation Not Reportable 10/18/20 05:11 Dohle Bodies Not Reportable 10/18/20 05:11 Pelger-Huet Anomaly Not Reportable 10/18/20 05:11 Millie Rods Not Reportable 10/18/20 05:11 Platelet Estimate Consistent w auto 10/18/20 05:11 Clumped Platelets Not Reportable 10/18/20 05:11 Plt Clumps, EDTA Not Reportable 10/18/20 05:11 Large Platelets Not Reportable 10/18/20 05:11 Giant Platelets Not Reportable 10/18/20 05:11 Platelet Satelliting Not Reportable 10/18/20 05:11 Plt Morphology Comment Not Reportable 10/18/20 05:11 RBC Morphology Normal 10/18/20 05:11 Dimorphic RBCs Not Reportable 10/18/20 05:11 Polychromasia Not Reportable 10/18/20 05:11 Hypochromasia Not Reportable 10/18/20 05:11 Poikilocytosis Not Reportable 10/18/20 05:11 Anisocytosis Not Reportable 10/18/20 05:11 Microcytosis Not Reportable 10/18/20 05:11 Macrocytosis Not Reportable 10/18/20 05:11 Spherocytes Not Reportable 10/18/20 05:11 Pappenheimer Bodies Not Reportable 10/18/20 05:11 Sickle Cells Not Reportable 10/18/20 05:11 Target Cells Not Reportable 10/18/20 05:11 Tear Drop Cells Not Reportable 10/18/20 05:11 Ovalocytes Not Reportable 10/18/20 05:11 Helmet Cells Not Reportable 10/18/20 05:11 Wharton-Alberton Bodies Not Reportable 10/18/20 05:11 Wideman Rings Not Reportable 10/18/20 05:11 Mayra Cells Not Reportable 10/18/20 05:11 Bite Cells Not Reportable 10/18/20 05:11 Crenated Cell Not Reportable 10/18/20 05:11 Elliptocytes Not Reportable 10/18/20 05:11 Acanthocytes (Spur) Not Reportable 10/18/20 05:11 Rouleaux Not Reportable 10/18/20 05:11 Hemoglobin C Crystals Not Reportable 10/18/20 05:11 Schistocytes Not Reportable 10/18/20 05:11 Malaria parasites Not Reportable 10/18/20 05:11 Lenny Bodies Not Reportable 10/18/20 05:11 Hem Pathologist Commnt No 10/18/20 05:11 PT 15.1 Sec. (12.2-14.9) H 10/17/20 00:50 INR 1.13 (0.87-1.13) 10/17/20 00:50 APTT 32.0 Sec. (24.2-36.6) 10/17/20 00:50 D-Dimer 539.50 ng/mlDDU (0-234) H 10/17/20 03:32 Sodium 141 mmol/L (137-145) 10/18/20 05:11 Potassium 5.0 mmol/L (3.6-5.0) 10/18/20 05:11 Chloride 100.9 mmol/L (98-107) 10/18/20 05:11 Carbon Dioxide 34 mmol/L (22-30) H 10/18/20 05:11 Anion Gap 11 mmol/L 10/18/20 05:11 BUN 12 mg/dL (7-17) 10/18/20 05:11 Creatinine 0.6 mg/dL (0.6-1.2) 10/18/20 05:11 Estimated GFR > 60 ml/min 10/18/20 05:11 BUN/Creatinine Ratio 20 % 10/18/20 05:11 Glucose 111 mg/dL (65-100) H 10/18/20 05:11 POC Glucose 123 mg/dL (70-105) H 10/21/20 05:59 Calcium 9.1 mg/dL (8.4-10.2) 10/18/20 05:11 Ferritin 15.6 ng/mL (10.0-200.0) 10/17/20 03:32 Total Bilirubin 0.30 mg/dL (0.1-1.2) 10/16/20 17:55 AST 41 units/L (5-40) H 10/16/20 17:55 ALT 50 units/L (7-56) 10/16/20 17:55 Alkaline Phosphatase 92 units/L (35-129) 10/16/20 17:55 Lactate Dehydrogenase 153 units/L (91-180) 10/17/20 03:32 Troponin T < 0.010 ng/mL (0.00-0.029) 10/16/20 21:10 C-Reactive Protein 0.70 mg/dL (0.00-1.30) 10/17/20 03:32 NT-Pro-B Natriuret Pep 6014 pg/mL (0-900) H 10/18/20 05:11 Total Protein 5.7 g/dL (6.3-8.2) L 10/16/20 17:55 Albumin 3.6 g/dL (3.9-5) L 10/16/20 17:55 Albumin/Globulin Ratio 1.7 % 10/16/20 17:55 Procalcitonin 0.44 ng/mL (<0.15) 10/17/20 03:32 Coronavirus (PCR) Negative (Negative) 10/17/20 09:00 Microbiology: Microbiology 10/17/20 03:32 Peripheral/Venous Blood Culture - Final NO GROWTH AFTER 5 DAYS 10/17/20 03:32 Peripheral/Venous Blood Culture - Final NO GROWTH AFTER 5 DAYS Diaz/IV: Voiding Method Toilet Active Medications - Current Medications Current Medications: Generic Name Dose Route Start Last Admin Trade Name Freq PRN Reason Stop Dose Admin Acetaminophen 650 mg 10/17/20 04:48 Acetaminophen 325 Mg Tab PO Q4H PRN Pain MILD(1-3)/Fever >100.5/PEREZ Albuterol 2.5 mg 10/17/20 04:48 Albuterol 2.5 Mg/3 Ml Nebu IH Q4HRT PRN Shortness Of Breath Albuterol/Ipratropium 1 ampul 10/22/20 08:00 10/22/20 14:38 Ipratropium/Albuterol Sulfate 3 Ml Ampul.Neb IH 1 ampul TIDRT HOWARD Administration Aspirin 81 mg 10/19/20 11:00 10/22/20 10:51 Aspirin Ec 81 Mg Tab PO 81 mg QDAY HOWARD Administration Budesonide 0.5 mg 10/18/20 11:30 10/22/20 14:37 Budesonide 0.5 Mg/2 Ml Nebu IH Not Given Q12HRT HOWARD Escitalopram Oxalate 5 mg 10/18/20 01:05 10/22/20 10:51 Escitalopram 10 Mg Tab PO 5 mg QDAY HOWARD Administration Famotidine 20 mg 10/17/20 10:00 10/22/20 10:51 Famotidine 20 Mg Tab PO 20 mg BID HOWARD Administration Furosemide 20 mg 10/19/20 18:00 10/22/20 06:43 Furosemide 20 Mg/2 Ml Inj IV 20 mg 0600,1800 HOWARD Administration Heparin Sodium (Porcine) 5,000 unit 10/17/20 06:00 10/22/20 13:41 Heparin 5,000 Unit/1 Ml Vial SUB-Q 5,000 unit Q8HR HOWARD Administration Hydralazine HCl 10 mg 10/17/20 04:51 Hydralazine 20 Mg/1 Ml Inj IV Q6H PRN Blood Pressure Nicotine 14 mg 10/17/20 21:00 10/22/20 10:52 Nicotine 14 Mg/24 Hr Patch TD 14 mg QDAY HOWARD Administration Ondansetron HCl 4 mg 10/17/20 04:48 Ondansetron 4 Mg/2 Ml Inj IV Q8H PRN Nausea And Vomiting Prednisone 60 mg 10/18/20 15:00 10/22/20 10:51 Prednisone 20 Mg Tab PO 60 mg QDAY HOWARD Administration Sodium Chloride 10 ml 10/17/20 10:00 10/22/20 10:52 Sodium Chloride 0.9% 10 Ml Flush Syringe IV 10 ml BID HOWARD Administration Sodium Chloride 10 ml 10/17/20 04:48 Sodium Chloride 0.9% 10 Ml Flush Syringe IV PRN PRN LINE FLUSH Spironolactone 25 mg 10/19/20 11:00 10/22/20 10:52 Spironolactone 25 Mg Tab PO 25 mg QDAY HOWARD Administration
[2020-10-23] MEDS: HEPARIN 5,000 UNIT/1 ML VIAL SUB-Q SCH ×2 (05:31→15:16)
[2020-10-23] MEDS: FUROSEMIDE 20 MG/2 ML INJ IV SCH ×2 (05:32→10:26)
--- NOTE | 2020-10-23 08:45 | Progress Note ---
<CLIVEDARWIN - Last Filed: 10/23/20 08:43> Assessment and Plan Shortness of breath associated with hypoxia Echocardiogram: severe dilation of the right heart chambers with at least moderate TR and moderate to severe pulmonary hypertension, RVSP 55-60 mmHg. Findings consistent with severe cor pulmonale. Left heart chamber size and function is normal, EF 55-60%. CTA: no evidence of PE. Abnormal ECG normal sinus rhythm with T wave inversions in the inferior leads and additional T wave inversions in the anterior leads. There are no old EKG tracings available for comparative analysis. Lexiscan this admission: normal perfusion Hypertension Chronic tobacco abuse Recommendations: Advised smoking cessation and outpatient pulmonary follow up for cor pulmonale. Patient is stable for cardiac discharge. Subjective Date of service: 10/23/20 Interval history: No cardiac changes. Objective Vital Signs Temp Pulse Pulse Pulse Resp Resp BP 10/23/20 03:56 98.5 F 71 18 133/86 10/22/20 22:00 10/22/20 21:12 98.5 F 75 18 143/89 10/22/20 16:45 97.9 F 87 17 10/22/20 14:00 94 H 18 10/22/20 10:57 98.1 F 76 17 10/22/20 10:52 76 128/65 10/22/20 10:00 89 BP Pulse Ox 10/23/20 03:56 79 L 10/22/20 22:00 94 10/22/20 21:12 96 10/22/20 16:45 131/77 97 10/22/20 14:00 10/22/20 10:57 128/65 96 10/22/20 10:52 10/22/20 10:00 94 - Physical Examination General: No Apparent Distress HEENT: Positive: PERRL Neck: Positive: neck supple Cardiac: Positive: Reg Rate and Rhythm Lungs: Positive: Decreased Breath Sounds Neuro: Positive: Grossly Intact Abdomen: Positive: Soft Extremities: Absent: edema <EDGARDO MARTINEZ - Last Filed: 10/27/20 07:23> Subjective Interval history: I SAW THIS PT & AGREE WITH THE Dx & Tx PLAN.
[2020-10-23] MEDS: predniSONE 20 MG TAB PO SCH (10:23)
[2020-10-23] MEDS: FAMOTIDINE 20 MG TAB PO SCH (10:24)
[2020-10-23] MEDS: ESCITALOPRAM 10 MG TAB PO SCH (10:24)
[2020-10-23] MEDS: SPIRONOLACTONE 25 MG TAB PO SCH (10:24)
[2020-10-23] MEDS: NICOTINE 14 MG/24 HR PATCH TD SCH (10:24)
[2020-10-23] MEDS: ASPIRIN EC 81 MG TAB PO SCH (10:24)
[2020-10-23] MEDS: IPRATROPIUM/ALBUTEROL SULFATE 3 ML AMPUL.NEB IH SCH ×2 (10:51→16:31)
[2020-10-23] MEDS: BUDESONIDE 0.5 MG/2 ML NEBU IH SCH (10:51)
--- NOTE | 2020-10-23 12:48 | Progress Note ---
Assessment and Plan 75 y/o female with acute exacerbation of obstructive lung disease 10/23/20: No new recs. Patient welcome to follow up with us for further work up of pulmonary HTN and COPD. Will sign off. Call if questions. 10/22/20: Pulm status is unchanged and my recs are the same. Taper as listed in note from 10/20. No objection to discharge pulm combs. Continue lasix therapy, hopeful to switch over to oral medications soon. Follow up luis. Currently on Prednisone 60 daily and suggest the taper listed in yesterday's note. She will need to follow up with us for full PFT to assess degree of obstruction. If patient does end up needing LHC, please do RHC as well. Per patient requests to speak with case management. Nurse was in room when she asked about this but likely needs CM consult. Smoking cessation Will continue to follow. Subjective Date of service: 10/23/20 Interval history: Now weaned to room air. Cardiology done with their work up. Objective Vital Signs - 12hr 10/23/20 10/23/20 10/23/20 03:56 09:25 10:00 Temperature 98.5 F Pulse Rate 71 Respiratory 18 Rate Blood Pressure 133/86 O2 Sat by Pulse 79 L 99 97 Oximetry 10/23/20 10:24 Temperature Pulse Rate 71 Respiratory Rate Blood Pressure 133/86 O2 Sat by Pulse Oximetry Constitutional: no acute distress, alert, other (cachectic) Eyes: non-icteric ENT: oropharynx moist Neck: supple Effort: normal Ascultation: Bilateral: diminished breath sounds, wheezes Percussion: Bilateral: not dull Tactile fremitus: Bilateral: normal Cardiovascular: regular rate and rhythm CBC and BMP: 10/18/20 05:11 10/18/20 05:11 ABG, PT/INR, D-dimer: PT/INR, D-dimer PT 15.1 Sec. (12.2-14.9) H 10/17/20 00:50 INR 1.13 (0.87-1.13) 10/17/20 00:50 D-Dimer 539.50 ng/mlDDU (0-234) H 10/17/20 03:32 Abnormal lab findings: Abnormal Labs 10/16/20 10/16/20 10/17/20 17:55 17:55 00:50 WBC 4.2 L RBC 5.63 H Hgb 15.6 H Hct 49.1 H RDW 15.4 H Monocytes % (Manual) PT 15.1 H D-Dimer 614.82 H Carbon Dioxide Glucose POC Glucose AST 41 H NT-Pro-B Natriuret Pep Total Protein 5.7 L Albumin 3.6 L 10/17/20 10/18/20 10/18/20 03:32 05:11 05:11 WBC RBC 5.15 H Hgb 14.4 H Hct 45.3 H RDW 15.4 H Monocytes % (Manual) 13.0 H PT D-Dimer 539.50 H Carbon Dioxide 34 H Glucose 111 H POC Glucose AST NT-Pro-B Natriuret Pep Total Protein Albumin 10/18/20 10/19/20 10/19/20 05:11 17:25 21:02 WBC RBC Hgb Hct RDW Monocytes % (Manual) PT D-Dimer Carbon Dioxide Glucose POC Glucose 160 H 314 H AST NT-Pro-B Natriuret Pep 6014 H Total Protein Albumin 10/20/20 10/20/20 10/20/20 03:30 06:33 17:42 WBC RBC Hgb Hct RDW Monocytes % (Manual) PT D-Dimer Carbon Dioxide Glucose POC Glucose 122 H 133 H 111 H AST NT-Pro-B Natriuret Pep Total Protein Albumin 10/20/20 10/21/20 10/22/20 22:34 05:59 21:15 WBC RBC Hgb Hct RDW Monocytes % (Manual) PT D-Dimer Carbon Dioxide Glucose POC Glucose 162 H 123 H 218 H AST NT-Pro-B Natriuret Pep Total Protein Albumin 10/23/20 10:58 WBC RBC Hgb Hct RDW Monocytes % (Manual) PT D-Dimer Carbon Dioxide Glucose POC Glucose 131 H AST NT-Pro-B Natriuret Pep Total Protein Albumin
--- NOTE | 2020-10-23 15:24 | Discharge Summary ---
Providers - Providers Date of Admission: 10/17/20 04:49 Attending physician: CELINA ALTMAN 10/17/20 15:14 Physical Therapy Evaluation and Treat [CONS] Routine Comment: Reason For Exam: Weakness, eval and treat 10/18/20 18:02 Consult to Case Management [CONS] Routine Services Needed at Discharge: Home O2 Notified:: DEVIN 10/19/20 07:28 Consult to Physician [CONS] Routine Comment: Consulting Provider: CHRISTIN SAMSON Physician Instructions: Reason For Exam: CHF 10/19/20 21:09 Consult to Case Management [CONS] Routine Services Needed at Discharge: Other Physical Therapy Notified:: DEVIN Comment:: acute rehab placement vs [facility] pt Primary care physician: BLOCK HACKER Hospitalization Condition: Stable Disposition: 30 STILL A PATIENT Exam - Constitutional Vitals: Temp Pulse Resp BP Pulse Ox 97.5 F L 75 16 129/76 87 10/23/20 10:59 10/23/20 11:00 10/23/20 10:59 10/23/20 10:59 10/23/20 11:00 Plan Follow up with: PRIMARY CARE, [Primary Care Provider] - 7 Days Prescriptions: Spironolactone [Aldactone] 25 mg PO QDAY #30 tablet Furosemide [Lasix TAB] 40 mg PO QDAY #30 tablet Prednisone [predniSONE 10 mg (6-Day Pack, 21 Tabs)] 10 mg PO .TAPER #1 tab.ds.pk
[2020-10-23 18:42] VITALS: BP 131/77
== END 2020-10-23 18:53 | disposition home or self-care (01) | DRG 189 ==
LOC: ED 17:33 → 3A 10-17 04:49
PROVIDERS: ADMIT Hospitalist; ATTEND Internal Medicine
DX: J96.01 Acute respiratory failure with hypoxia (principal); J18.9 Pneumonia, unspecified organism; I50.33 Acute on chronic diastolic (congestive) heart failure; R64 Cachexia; I11.0 Hypertensive heart disease with heart failure; F17.200 Nicotine dependence, unspecified, uncomplicated; I27.81 Cor pulmonale (chronic); J43.9 Emphysema, unspecified; Z20.822 Contact with and (suspected) exposure to COVID-19; I27.20 Pulmonary hypertension, unspecified; J45.909 Unspecified asthma, uncomplicated; Z71.6 Tobacco abuse counseling; Z68.26 Body mass index [BMI] 26.0-26.9, adult; Z79.899 Other long term (current) drug therapy
CPT/HCPCS: 36415; 71045; 71046; 71275; 78452; 80048; 80053; 82728; 82947; 82962; 83615; 83880; 84145; 84484; 85007; 85025; 85379; 85610; 85730; 86140; 87040; 93005; 93017; 93306; 94640; 94760; G0378; A9502; J0456; J0696; J1100; J1644; J1940; J2785; J7512; J8540; Q9967; U0003